=== PATIENT | female | born 1980 | race Hispanic/Latino ===

== ENCOUNTER 2024-05-26 16:51 | Inpatient (IN) | payer SELFPAY ==
[~2024-05-26] VITALS: Ht 162.6 cm; Wt 89.9 kg
--- NOTE | 2024-05-26 16:55 | NUR ---
SEPSIS ALERT ACTIVATED
[2024-05-26 17:22] LABS: BASOPHILS # (AUTO) 0.05 K/uL (0.00-0.20); BASOPHILS % (AUTO) 0.3 % (0.0-5.0); EOSINOPHILS # (AUTO) 0.08 K/uL (0.00-0.70); EOSINOPHILS % (AUTO) 0.5 % (0.0-8.0); HEMATOCRIT 42.1 % (36-48); IMMATURE GRANULOCYTE ABSOLUTE 0.09 K/uL (0-1); LYMPHOCYTES # (AUTO) 1.6 K/uL (1.0-4.8); LYMPHOCYTES % (AUTO) 9.4 % (21.0-51.0); MEAN CORPUSCULAR HEMOGLOBIN 30.7 pg (27.0-33.0); MEAN CORPUSCULAR HGB CONC 33.7 g/dL (32.0-36.0); MEAN CORPUSCULAR VOLUME 90.9 fL (79-99); MONOCYTES # (AUTO) 1.8 K/uL (0.1-1.0); MONOCYTES % (AUTO) 10.7 % (3.0-13.0); NEUTROPHILS # (AUTO) 13.2 K/uL (1.8-7.7); NEUTROPHILS % (AUTO) 78.6 % (40.0-77.0); PLATELET COUNT (AUTO) 308 K/uL (130-400); RED BLOOD CELL COUNT(AUTO) 4.63 MIL/uL (4.00-5.50); WHITE BLOOD COUNT (AUTO) 16.8 K/uL (4.8-10.8)
[2024-05-26 17:33] LABS: CREATININE 0.9 mg/dL (0.5-1.0); POTASSIUM 3.5 mmol/L (3.5-5.1)
[2024-05-26 17:37] LABS: ALBUMIN 3.4 g/dL (3.5-5.0); BILIRUBIN,TOTAL 0.8 mg/dL (0.2-1.0); TOTAL PROTEIN, SERUM 8.4 g/dL (6.0-8.3)
--- NOTE | 2024-05-26 17:44 | ERN ---
General Chief Complaint: Abdominal Pain Stated Complaint: UPPER ABDOMINAL PAIN Time Seen by MD: 16:53 Source: patient History of Present Illness Initial Comments Patient is a 43-year-old female coming in to be evaluated for upper abdominal. Patient states that the pain began two days ago in his been waxing and waning. Along with the epigastric pain the pain is also present in the right upper quadrant area. Allergies: Coded Allergies: No Known Drug Allergies (Unverified Allergy, Unknown, 05/26/24) Past Medical History Past Medical History: No Pertinent History Past Surgical History: Other Surgical History Other: TUBAL Female( History) LMP: May 26, 2024 : 5 Para: 4 Aborts: 1 ROS Dictation CONSTITUTIONAL: No chills, no fever, no weakness, no diaphoresis, no malaise. HEAD/FACE: No signs of trauma. EENT: No eye pain, no blurred vision, no tearing, no double vision, no ear pain, no ear discharge, no nose pain, no nasal congestion, no throat pain, no throat swelling, no mouth pain. RESPIRATORY: No cough, no orthopnea, no SOB, no stridor, no wheezing. CARDIOVASCULAR: No chest pain, no edema, no palpitations, no syncope. GASTROINTESTINAL/ABDOMINAL: abdominal pain, no constipation, no diarrhea, no nausea, no vomiting. GENITOURINARY: No abnormal discharge, no dysuria, no frequent urination, no hematuria. No complaints of pain in the genitals. MUSCULOSKELETAL: No back pain, no gout, no joint pain, no joint swelling, no muscle pain, no muscle stiffness, no neck pain. INTEGUMENTARY: No change in color, no change in hair/nails, no dryness, no lesion, no lumps, no rash. NEUROLOGICAL/PSYCH: No anxiety, not depressed, no emotional problem, no headache, no numbness, no pre-existing deficit, no history of seizures, no tremors, no weakness. HEMATOLOGIC/LYMPHATIC: Not anemic, no history of blood clots, no apparent bleeding, no bruising, glands not swollen. All Systems Negative, Except as Noted. Physical Exam Physical Exam Dictation VITAL SIGNS: Reviewed. GENERAL APPEARANCE: Alert, oriented x3, no acute distress, obese. HEAD AND FACE: Non-traumatic. EYES: PERRL, pink conjunctivas, eyelid no trauma, anterior chamber clear. EARS: Pinnas intact and no signs of trauma or erythema. Ear canals clear and no discharge. TMs no erythema. NOSE: No discharge, no bleeding. OROPHARYNX: Mouth normal, teeth no caries, tongue pink. Pharynx clear, no erythema. Tonsils no exudates, no abscesses noted. Mucous membrane moist. NECK: Supple, non-tender, no thyromegaly, no masses, no JVD, no bruits. BREAST: Deferred. CHEST: No tenderness, no crepitus, no paradoxical movement, no retractions. LUNGS: Clear, well-ventilated, symmetric, no rales, no wheezing, no rhonchi, no stridor, good breath sounds bilaterally. HEART: Regular rate, regular rhythm, no murmur, no gallops. VASCULAR: No peripheral edema. ABDOMEN: Soft, positive bowel sounds, nondistended, no guarding, right upper quadrant tenderness on palpation, epigastric tender, no rebound, no masses no hepatomegaly, no splenomegaly, no Green's sign, no hernias. RECTAL: Deferred. GENITAL: Deferred. NEUROLOGICAL: Normal speech, gross motor function intact, gross sensory function intact. MUSCULOSKELETAL: Neck nontender, full range of motion, back nontender, full ra nge of motion. EXTREMITIES: Nontender, full range of motion. SKIN: Color pink, dry, no turgor, no rash, no lacerations, no abrasions, no contusions. LYMPHATICS: Deferred. Results Laboratory and Microbiology Lab and Micro Result Laboratory Tests Test 05/26/24 17:11 05/26/24 18:36 White Blood Count 16.8 K/uL (4.8-10.8) H Red Blood Count 4.63 MIL/uL (4.00-5.50) Hemoglobin 14.2 g/dL (12.0-16.0) Hematocrit 42.1 % (36-48) Mean Corpuscular Volume 90.9 fL (79-99) Mean Corpuscular Hemoglobin 30.7 pg (27.0-33.0) Mean Corpuscular Hemoglobin Concent 33.7 g/dL (32.0-36.0) Red Cell Distribution Width 13.0 % (11.0-15.5) Platelet Count 308 K/uL (130-400) Mean Platelet Volume 9.7 fL (7.5-10.5) Immature Granulocyte % (Auto) 0.5 % (0-1) Neutrophils (%) (Auto) 78.6 % (40.0-77.0) H Lymphocytes (%) (Auto) 9.4 % (21.0-51.0) L Monocytes (%) (Auto) 10.7 % (3.0-13.0) Eosinophils (%) (Auto) 0.5 % (0.0-8.0) Basophils (%) (Auto) 0.3 % (0.0-5.0) Neutrophils # (Auto) 13.2 K/uL (1.8-7.7) H Lymphocytes # (Auto) 1.6 K/uL (1.0-4.8) Monocytes # (Auto) 1.8 K/uL (0.1-1.0) H Eosinophils # (Auto) 0.08 K/uL (0.00-0.70) Basophils # (Auto) 0.05 K/uL (0.00-0.20) Absolute Immature Granulocyte (auto 0.09 K/uL (0-1) Nucleated Red Blood Cells 0.0 % (0.0-0.19) White Cell Morphology Comment See comments Sodium Level 135 mmol/L (136-145) L Potassium Level 3.5 mmol/L (3.5-5.1) Chloride Level 97 mmol/L (101-111) L Carbon Dioxide Level 29 mmol/L (21-32) Blood Urea Nitrogen 7 mg/dL (7-18) Creatinine 0.9 mg/dL (0.5-1.0) Glomerular Filtration Rate Calc 82 mL/min (>90) Random Glucose 104 mg/dL (70-105) Total Calcium 8.7 mg/dL (8.5-10.1) Total Bilirubin 0.8 mg/dL (0.2-1.0) Aspartate Amino Transf (AST/SGOT) 16 U/L (10-37) Alanine Aminotransferase (ALT/SGPT) 16 U/L (12-78) Alkaline Phosphatase 98 U/L (50-136) Total Creatine Kinase 90 U/L (21-232) Troponin I High Sensitivity < 4 ng/L (4-50) L Total Protein 8.4 g/dL (6.0-8.3) H Albumin 3.4 g/dL (3.5-5.0) L Lipase 27 U/L (16-77) Urine Color LIGHT-YELLOW (YELLOW) Urine Appearance CLEAR (CLEAR) Urine pH 7.5 (5.0-8.0) Urine Specific [place] 1.005 (1.001-1.031) Urine Protein NEGATIVE mg/dL (NEGATIVE) Urine Glucose (UA) NEGATIVE mg/dL (NEGATIVE) Urine Ketones 10 mg/dL (NEGATIVE) H Urine Occult Blood +- (TRACE) (NEGATIVE) H Urine Nitrate NEGATIVE (NEGATIVE) Urine Bilirubin NEGATIVE mg/dL (NEGATIVE) Urine Urobilinogen 0.2 mg/dL (0.2-1.0) Urine Leukocyte Esterase NEGATIVE Ke[place]/uL Urine RBC 2-5 /HPF (0-1) H Urine WBC 0-1 /HPF (0-1) Urine Squamous Epithelial Cells RARE /HPF (0-2) Urine Bacteria RARE /HPF (None Seen) Urine HCG, Qualitative NEGATIVE (NEGATIVE) Labs Reviewed?: Yes EKG/XRAY/US/CT/MRI EKG Comment 05/26/2024 time 5:34 p.m. Ventricular rate [address] wave elevation or depression OH 148 MDM Workup for the patient included a right upper quadrant ultrasound which was negative. However a CT scan of her abdomen and pelvis showed a thickened gallbladder wall and then also to intra-abdominal masses. The patient had a fever spike to 102 and her CBC showed a white count elevated. I gave her some Tylenol and started an antibiotic Rocephin. I have called the hospitalist to admitted her to their service. ED Course Orders Procedure Category Date Status Time Cbc With Differential LAB 05/26/24 Complete 17:16 Comprehensive LAB 05/26/24 Complete Metabolic Panel 17:16 Troponin I High LAB 05/26/24 Complete Sensitivity 17:16 ,Urine Test LAB 05/26/24 Complete 17:16 Urinalysis Profile LAB 05/26/24 Complete 17:16 Us Abdominal Ruq\Ltd US 05/26/24 Resulted 17:16 12 Lead Ekg Tracing- EKG 05/26/24 Logged Technical 17:16 Lactated Ringers PHA 05/26/24 Complete 1000ml (Lactated 17:30 Creatine Kinase, Total LAB 05/26/24 Complete 17:16 Lipase LAB 05/26/24 Complete 17:16 Ct Abdomen/Pelvis W/O CT 3/27/25 Resulted Contrast 18:35 Acetaminophen 325 Tab PHA 05/26/24 Complete (Tylenol 325mg Tab 21:30 Ceftriaxone 2gm Vial PHA 05/26/24 Complete (Rocephin 2gm Inj) 21:30 Fentanyl Citrate Pf PHA 05/26/24 Complete 0.05 Mg/Ml (Fentanyl 21:30 Current Medications Medications (Trade) Dose Ordered Sig/Maricarmen Route PRN Reason Start Time Stop Time Status Last Admin Dose Admin Acetaminophen (TYLenol 325MG TAB) 650 mg ONCE ONCE PO 05/26/24 21:30 05/26/24 21:31 DC Ceftriaxone Sodium (Rocephin 2gm Inj) 2 gm ONCE ONCE IVPB 05/26/24 21:30 05/26/24 21:31 DC Fentanyl Citrate (FENTanyl CITRate PF 50 MCG/ 1 ML 2ML VIAL) 100 mcg ONCE ONCE IVP 05/26/24 21:30 05/26/24 21:31 DC Lactated Ringer's 1,000 ml @ 0 mls/hr ONCE ONCE IV 05/26/24 17:30 05/26/24 17:48 DC Vital Signs Date Time Temp Pulse Resp B/P (MAP) Pulse Ox O2 Delivery O2 Flow Rate FiO2 05/26/24 21:13 102.0 106 20 126/83 100 Room Air* 0 05/26/24 18:30 99.3 86 18 121/94 99 Room Air* 0 05/26/24 17:00 99.1 106 20 126/88 97 Room Air* 0 05/26/24 16:52 100.9 111 20 136/86 99 Room Air 0 DX & DISP Disposition: Inpatient Departure Impression: Primary Impression: Abdominal mass Condition: Stable Referrals: SELF,REFERRAL (PCP) MC HAYES MD May 26, 2024 17:44 JOSE DOMINGUEZ MD May 26, 2024 22:00
--- NOTE | 2024-05-26 18:28 | HMCIMG ---
ULTRASOUND ABDOMEN LIMITED INDICATION: Right upper abdominal pain COMPARISON: None FINDINGS: The liver is normal in size and echogenicity; no focal lesion demonstrated. Main portal vein is patent, and normal direction of vascular flow demonstrated. The common bile duct diameter measures 5.0 mm. Multiple echogenic shadowing stones within the gallbladder lumen, and gallbladder is filled with sludge, without associated pericholecystic fluid. No sonographic Green's sign elicited by the ultrasound carton lettering machine operator. Wall thickness measures 6.0 mm. Visible portions of the pancreas appear normal. Tail is obscured by overlying bowel gas. The right kidney measures 12.0 x 4.6 x 3.7 cm,and is normal in echogenicity, without evidence for hydronephrosis.No shadowing stones demonstrated. 1.4 cm simple cyst at the upper pole of the right kidney. No free fluid demonstrated. IMPRESSION: Cholelithiasis without cholecystitis.
[2024-05-26] MEDS: LACTATED RINGERS 1000ML 1,000 ML IV ONE (18:33)
--- NOTE | 2024-05-26 18:33 | NUR ---
ADMINISTERED LR BOLUS @ 1700 AFTER SEPSIS ALERT PATIENT RESTING IN BED, CALL LIGHT IN REACH
[2024-05-26 18:55] LABS: APPEARANCE,URINE CLEAR (CLEAR); BILIRUBIN,URINE NEGATIVE (NEGATIVE); COLOR,URINE LIGHT-YELLOW (YELLOW); GLUCOSE, URINE (UA) NEGATIVE (NEGATIVE); KETONES,URINE 10 mg/dL (NEGATIVE); LEUKOCYTE ESTERASE ,URINE NEGATIVE Leu/uL (NEGATIVE); NITRATE,URINE NEGATIVE (NEGATIVE); PH,URINE 7.5 (5.0-8.0); PROTEIN,URINE NEGATIVE (NEGATIVE); UROBILINOGEN,URINE 0.2 mg/dL (0.2-1.0)
[2024-05-26 18:56] LABS: ADD UA MICROSCOPIC YES
[2024-05-26 18:57] LABS: HCG,QUALITATIVE URINE NEGATIVE (NEGATIVE)
[2024-05-26 18:59] LABS: BACTERIA,URINE RARE /HPF (None Seen); SQUAMOUS EPITHELIAL CELL,UR RARE /HPF (0-2); WBC,URINE 0-1 /HPF (0-1)
--- NOTE | 2024-05-26 19:34 | HMCIMG ---
CT ABDOMEN WITHOUT CONTRAST. CT PELVIS WITHOUT CONTRAST. INDICATION: Abdominal pain; No relevant information related to this study was provided in patient's history by the ordering service. TECHNIQUE: Routine transaxial imaging using 5 mm slice thickness through the abdomen and pelvis without the administration of IV contrast. Thin slice reconstructions are also provided. Coronal and sagittal reformatted images acquired for interpretation. CT was performed with one or more of the following dose reduction techniques: Automated exposure control, adjustment of the mA and/or kV according to patient size, or use of iterative reconstruction technique. COMPARISON: None FINDINGS: ON NONCONTRAST IMAGING: ABDOMEN: Heart size is normal. Visible lung bases are clear. No abnormal renal calcifications, hydronephrosis, perinephric inflammation, or proximal hydroureter detected. The liver is normal in size and smooth in contour without biliary duct dilation. The spleen is normal in size and attenuation. Gallbladder is distended and gallbladder wall edema identified including intraluminal calculi and sludge. Nominal pericholecystic inflammatory fat stranding. The pancreas appears normal without pancreatic duct dilation. The adrenal glands appear normal. No significant abdominal, retrocrural or retroperitoneal adenopathy noted. No evidence for intra-abdominal free air or organized fluid collection. No aortic aneurysmal dilation identified. PELVIS: No abnormal calcifications within the urinary bladder or distal ureters. No evidence for free air or organized pelvic fluid collection. No significant pelvic adenopathy detected. Visualized small and large bowel loops appear unremarkable. Terminal ileum appears unremarkable. The appendix is not well-visualized. 10.6 cm mass containing fat, soft tissue, and calcific components within the right lower abdomen and additional 12.5 cm mass aggregate within the left adnexa with similar components. No surrounding inflammatory changes or free fluid. 5.0 cm subserosal fibroid arising superiorly off the posterior uterine fundus. Visible osseous structures are intact. IMPRESSION: No relevant information related to this study was provided in patient's history by the ordering service. 1. Findings suggesting acute calculus cholecystitis. 2. Bilateral adnexal teratomas without lymphadenopathy at this juncture. TALLOW MAKER consult is recommended. 3. Fibroid uterus.
[2024-05-26] MEDS: FENTanyl CITRate PF 50 MCG/1 ML 2ML VIAL IVP ONE (22:11)
[2024-05-26] MEDS: acetaMINOPHEN 325 MG TAB PO ONE (22:12)
[2024-05-26] MEDS: CEFTRIAXONE 2GM VIAL IVPB ONE (22:12)
[2024-05-27] VITALS (9 sets, daily range): BP systolic 113–154; BP diastolic 75–89; PULSE 64–86; RESP 18–20; TEMP 97.6–99.2; O2SAT 99–100
[2024-05-27] MEDS: 0.9%NACL 1000ML 1,000 ML IV SCH (00:06)
[2024-05-27] MEDS: ZOSYN 3.375GM +NS 50ML IV SCH (00:06)
[2024-05-27] MEDS: morPHINE 2 MG SYG IVP PRN (00:17)
--- NOTE | 2024-05-27 01:30 | NUR ---
REPORT GIVEN TO CELIA GARCIA
[2024-05-27] MEDS: hydroMORPHone 0.5 MG SYG (0.5MG/0.5ML) IVP ONE (02:13)
[2024-05-27 05:07] LABS: BASOPHILS # (AUTO) 0.04 K/uL (0.00-0.20); BASOPHILS % (AUTO) 0.2 % (0.0-5.0); EOSINOPHILS # (AUTO) 0.16 K/uL (0.00-0.70); HEMATOCRIT 37.9 % (36-48); IMMATURE GRANULOCYTE ABSOLUTE 0.09 K/uL (0-1); LYMPHOCYTES # (AUTO) 1.5 K/uL (1.0-4.8); LYMPHOCYTES % (AUTO) 9.2 % (21.0-51.0); MEAN CORPUSCULAR HEMOGLOBIN 30.8 pg (27.0-33.0); MEAN CORPUSCULAR HGB CONC 33.8 g/dL (32.0-36.0); MEAN CORPUSCULAR VOLUME 91.1 fL (79-99); MONOCYTES # (AUTO) 1.9 K/uL (0.1-1.0); MONOCYTES % (AUTO) 11.6 % (3.0-13.0); NEUTROPHILS % (AUTO) 77.5 % (40.0-77.0); PLATELET COUNT (AUTO) 271 K/uL (130-400); RED BLOOD CELL COUNT(AUTO) 4.16 MIL/uL (4.00-5.50); WHITE BLOOD COUNT (AUTO) 16.7 K/uL (4.8-10.8)
[2024-05-27 05:25] LABS: ALBUMIN 2.8 g/dL (3.5-5.0); BILIRUBIN,TOTAL 0.6 mg/dL (0.2-1.0); CREATININE 0.7 mg/dL (0.5-1.0); MAGNESIUM 2.1 mg/dL (1.80-2.40); POTASSIUM 3.6 mmol/L (3.5-5.1); TOTAL PROTEIN, SERUM 7.1 g/dL (6.0-8.3)
--- NOTE | 2024-05-27 06:05 | EKG ---
[facility] Test Date: 2024-05-26 Test Time: 17:34:57 Pat Name: DANTE TOBIAS Department: [facility] Room: 329 1 Gender: F Umbrella Tipper Machine: [id number] : 1980 Requested By: MC HAYES Order Number: [id number] Reading MD: Sang Valdez Measurements Intervals [place] Rate: 104 P: 3 DC: 148 QRS: 63 QRSD: 98 T: 2 QT: 377 QTc: 497 Interpretive Statements Sinus tachycardia Ventricular premature complex Aberrant conduction of SV complex(es) Low voltage, precordial leads No previous ECG available for comparison Electronically Signed On 05-27-2024 14:50:45 CDT by Sang Valdez Please click the below link to view image of tracing.
[2024-05-27] MEDS: ondanSETRON 4MG INJ IVP PRN (08:16)
[2024-05-27] MEDS ORDERED: hydroMORPHone 2 MG VIAL (2MG/ML) IVP PRN (12:30)
--- NOTE | 2024-05-27 12:36 | HP ---
[facility] HISTORY AND PHYSICAL Date of Service: May 27, 2024 Time of Service: 12:09 HISTORY OF PRESENT ILLNESS: [Is a 43-year-old female who denies any past medical history presented to the emergency department with four days of abdominal pain associated with nausea and vomiting. She also reported subjective fever. She took a penicillin and omeprazole at home without no resolution. She decided to come to the emergency department for further evaluation. In the ED, abdominal ultrasound done which showed cholelithiasis without cholecystitis. CT abdomen and pelvis showed findings suggestive calculous cholecystitis, bilateral adnexal teratomas without lymphadenopathy at this juncture, fibroid uterus. Roof Tiler consult is recommended. Patient was evaluated in the room, she was reporting 10/10 abdominal pain. We will adjust pain medication. We will be consulting general surgeon. ] REVIEW OF SYSTEMS CONSTITUTIONAL: Denies fevers, chills, or night sweats. No unintentional weight loss reported. NEUROLOGICAL: Denies headache, amaurosis fugax, motor weakness, sensory deficit, vertigo/spinning sensation, gait abnormalities, or tremors. ENT: No hearing loss, otalgia, otorrhea, rhinitis, rhinorrhea, hoarseness, or sore throat. CARDIOVASCULAR: Denies any exertional angina, dyspnea on exertion, orthopnea, paroxysmal nocturnal dyspnea, palpitations, life-threatening arrhythmias, claudication. PULMONARY: Denies any shortness of breath, cough, phlegm/sputum, hemoptysis, pleuritic chest pain. SLEEP: Denies morning headaches, daytime somnolence or napping. Denies difficulty falling asleep, staying asleep, waking from sleep. Denies knowledge of snoring. GASTROINTESTINAL: Denies any type of dysphagia to either liquids or solids. Denies nausea, vomiting, pyrosis, early satiety, abdominal pain, diarrhea, constipation, or changes in stool consistency or caliber. Denies coffee-ground emesis, hematemesis, hematochezia, or melanotic stools. GENITOURINARY: Denies frequency, urgency, nocturia, hematuria or incontinence (Storage/Irritative symptoms.) Low urinary stream, straining to void, urinary intermittency or hesitancy, splitting of the voiding stream, terminal dribbling. ENDOCRINOLOGIC: Denies polyuria, polydipsia, polyphagia or heat/cold intolerances. HEMATOLOGIC: Denies thrombophilia/previous clots, or coagulopathy/bleeding disorders. ONCOLOGIC: Denies personal history of malignancy. DERMATOLOGIC: Denies rashes or pruritus. PSYCHIATRIC: Denies any suicidal or homicidal ideation. Denies hallucinations. PAST MEDICAL HISTORY: [ Denies any past medical history ] PAST SURGICAL HISTORY: [Tubal ligation ] PAST SOCIAL HISTORY: [Patient vapes, drinks occasionally, ] FAMILY HISTORY: [Noncontributory ] Coded Allergies: No Known Drug Allergies (Unverified Allergy, Unknown, 05/26/24) PHYSICAL EXAM GENERAL APPEARANCE: The patient is awake, alert, and oriented, in no acute cardiopulmonary distress. NEUROLOGICAL: Cranial nerves II-XII grossly intact. Motor is 5/5 in bilateral upper and lower extremities proximal to distal. No sensory deficits. HEENT: Face is symmetric. Pupils are equal and reactive. Extraocular movements are intact. NECK: Supple. No JVD. No thyromegaly. No submental, submandibular, pre- /postauricular, occipital or supraclavicular lymphadenopathy. CHEST: Normal chest expansion. No Telemetry. LUNGS: Absence of any rales, rhonchi or any wheezing. CARDIOVASCULAR: Regular. S1 and S2 normal. No appreciable rubs, murmurs or gallops. ABDOMEN: Soft, nontender, and nondistended. There is no rebound, voluntary guarding, or rigidity. : Deferred. No Roach. EXTREMITIES: Non-edematous and not cyanotic. No clubbing. Good capillary refill. SKIN: No skin breakdown. Vital Sign (Last 24 Hours) 05/27/24 05/27/24 02:00 07:41 Temp 98.1 Pulse 71 Resp 20 B/P (MAP) 132/88 Pulse Ox 100 O2 Delivery Room Air O2 Flow Rate 0 FiO2 21 LABS: Laboratory: Test 05/27/24 05:01 05/26/24 18:36 05/26/24 17:11 Range/Units White Blood Count 16.7 H 4.8-10.8 K/uL Red Blood Count 4.16 4.00-5.50 MIL/uL Hemoglobin 12.8 12.0-16.0 g/dL Hematocrit 37.9 36-48 % Mean Corpuscular Volume 91.1 79-99 fL Mean Corpuscular Hemoglobin 30.8 27.0-33.0 pg Mean Corpuscular Hemoglobin Concent 33.8 32.0-36.0 g/dL Red Cell Distribution Width 13.0 11.0-15.5 % Platelet Count 271 130-400 K/uL Mean Platelet Volume 9.9 7.5-10.5 fL Immature Granulocyte % (Auto) 0.5 0-1 % Neutrophils (%) (Auto) 77.5 H 40.0-77.0 % Lymphocytes (%) (Auto) 9.2 L 21.0-51.0 % Monocytes (%) (Auto) 11.6 3.0-13.0 % Eosinophils (%) (Auto) 1.0 0.0-8.0 % Basophils (%) (Auto) 0.2 0.0-5.0 % Neutrophils # (Auto) 13.0 H 1.8-7.7 K/uL Lymphocytes # (Auto) 1.5 1.0-4.8 K/uL Monocytes # (Auto) 1.9 H 0.1-1.0 K/uL Eosinophils # (Auto) 0.16 0.00-0.70 K/uL Basophils # (Auto) 0.04 0.00-0.20 K/uL Absolute Immature Granulocyte (auto 0.09 0-1 K/uL Nucleated Red Blood Cells 0.0 0.0-0.19 % Sodium Level 137 136-145 mmol/L Potassium Level 3.6 3.5-5.1 mmol/L Chloride Level 101 101-111 mmol/L Carbon Dioxide Level 26 21-32 mmol/L Blood Urea Nitrogen 6 L 7-18 mg/dL Creatinine 0.7 0.5-1.0 mg/dL Glomerular Filtration Rate Calc 111 >90 mL/min Random Glucose 101 70-105 mg/dL Lactic Acid Level 0.9 0.8-2.5 mmol/L Total Calcium 8.0 L 8.5-10.1 mg/dL Magnesium Level 2.10 1.80-2.40 mg/dL Total Bilirubin 0.6 # 0.2-1.0 mg/dL Aspartate Amino Transf (AST/SGOT) 14 10-37 U/L Alanine Aminotransferase (ALT/SGPT) 12 # 12-78 U/L Alkaline Phosphatase 76 50-136 U/L Total Protein 7.1 6.0-8.3 g/dL Albumin 2.8 L 3.5-5.0 g/dL Urine Color LIGHT-YELLOW YELLOW Urine Appearance CLEAR CLEAR Urine pH 7.5 5.0-8.0 Urine Specific [place] 1.005 1.001-1.031 Urine Protein NEGATIVE NEGATIVE mg/dL Urine Glucose (UA) NEGATIVE NEGATIVE mg/dL Urine Ketones 10 H NEGATIVE mg/dL Urine Occult Blood +- (TRACE) H NEGATIVE Urine Nitrate NEGATIVE NEGATIVE Urine Bilirubin NEGATIVE NEGATIVE mg/dL Urine Urobilinogen 0.2 0.2-1.0 mg/dL Urine Leukocyte Esterase NEGATIVE NEGATIVE Keiry/uL Urine RBC 2-5 H 0-1 /HPF Urine WBC 0-1 0-1 /HPF Urine Squamous Epithelial Cells RARE 0-2 /HPF Urine Bacteria RARE None Seen /HPF Urine HCG, Qualitative NEGATIVE NEGATIVE White Cell Morphology Comment See comments Total Creatine Kinase 90 21-232 U/L Troponin I High Sensitivity < 4 L 4-50 ng/L Lipase 27 16-77 U/L Current Medications Medications (Trade) Dose Ordered Sig/Maricarmen Route PRN Reason Start Time Stop Time Status Last Admin Dose Admin Acetaminophen (TYLenol 325MG TAB) 650 mg Q4H PRN PO TEMPERATURE GREATER THAN 101.5 05/26/24 22:30 06/25/24 22:29 Morphine Sulfate (morPHINE 2MG SYG) 2 mg Q4H PRN IVP SEVERE PAIN (7-10) 05/26/24 22:30 06/02/24 22:29 05/27/24 11:10 2 MG Ondansetron HCl (zoFRAN 4MG INJ) 4 mg Q6H PRN IVP NAUSEA/VOMITING 05/26/24 22:30 06/25/24 22:29 05/27/24 08:16 4 MG Piperacillin Sod/ Tazobactam Sod (Zosyn 3.375gm+NS 50ml) 3.375 gm Q8H IV 05/26/24 22:30 06/05/24 22:29 05/27/24 06:21 3.375 GM Sodium Chloride 1,000 ml @ 100 mls/hr Q10H IV 05/26/24 22:30 06/25/24 22:29 05/27/24 08:34 100 MLS/HR DIAGNOSTICS / RADIOLOGY: [ ] ASSESSMENT: [Sepsis, POA Acute calculous cholecystitis, POA Intractable abdominal pain, POA Hyponatremia, POA Leukocytosis, POA PLAN: [Admit medical surgical floor We will keep her NPO Continue with IV fluids Continue with IV antibiotics with Zosyn We will repeat labs in the morning Continue with pain management GI and DVT prophylaxis Patient is a full code Case discussed with Dr. Shine, above plan was formulated ADVANCED CARE PLANNING 1. Which of the following were discussed? Hospice Care - Yes / No Therapeutic options - Yes / No Advance Directives - Yes / No Other discussions - 2. Discussed with who? Patient 3. Voluntary nature of this service was explained to the patient? Yes / No 4. Amount of time spent - __21 mins 5. Reviewed by Physician? (if this service was performed by NPP) Yes / No ] ATTESTATION BY PHYSICIAN I have seen and examined the patient. I reviewed the documentation, medical decision making, and treatment plan as noted by the mid-level provider above. I agree with the findings and plan of care. BARBARA SHINE MD, JANICE B AGPCNP May 27, 2024 12:36
--- NOTE | 2024-05-27 15:15 | NUR ---
lIes with adult son and minor daughter, and is [place] [facility] [email or web address]. Pt is independent, drives, has no DME or services. HAS NO PRIMARY MD AND HAS NOT HAS ANY HSPT TUTOR VISIT IN ABOUT 17 YRS Does not go to clinics her, does not have a pharmacy- gets her medications in [place]. Community resource list given with special instruction regarding setting up with [facility] and /or [facility] for OB visits. Expect patient to have difficulty accessing resources need to fully diagnose and treat the findings in her. CT SCAN Facesheet and phone numbers confirmed. Addendum: 05/27/24 at 1746 by JENIFER NIEVES RN Amended: Links added.
[2024-05-27] MEDS: morPHINE 4 MG SYG IVP PRN (17:10)
--- NOTE | 2024-05-27 20:06 | NUR ---
PATIENT REPORTS SHE IS FEELING NAUSEA AND SENSATION THAT SHE WANTS TO BURP. SHE HAS RECEIVED ZOFRAN AT 1709. CONTACTED ANSWERING SERVICE FOR HOSPITALIST TO NOTIFY. SPOKE TO WIL[facility]HAL [facility] UPON CALL BACK. RECEIVED ORDERS FOR PHENERGAN TO ALTERNATE WITH ZOFRAN. INFORMED PATIENT.
[2024-05-27] MEDS: PROMETHAZINE HCL 25 MG/ML 1ML AMPULE IM PRN (20:41)
--- NOTE | 2024-05-27 21:30 | NUR ---
PATIENT REPORTS NAUSEA WAS RELIEVED AFTER MEDICATED WITH PHENERGAN.
[2024-05-28] VITALS (9 sets, daily range): BP systolic 128–139; BP diastolic 80–86; PULSE 97–109; RESP 17–21; TEMP 97.9–101.9; O2SAT 99
[2024-05-28 04:22] LABS: HEMATOCRIT 39.5 % (36-48); MEAN CORPUSCULAR HEMOGLOBIN 30.5 pg (27.0-33.0); MEAN CORPUSCULAR HGB CONC 33.9 g/dL (32.0-36.0); PLATELET COUNT (AUTO) 300 K/uL (130-400); RED BLOOD CELL COUNT(AUTO) 4.39 MIL/uL (4.00-5.50); RED CELL DISTRIBUTION WIDTH 12.8 % (11.0-15.5)
[2024-05-28 04:27] LABS: WHITE BLOOD COUNT (AUTO) 31.5 K/uL (4.8-10.8)
[2024-05-28 04:32] LABS: CREATININE 0.6 mg/dL (0.5-1.0); POTASSIUM 3.9 mmol/L (3.5-5.1)
[2024-05-28] MEDS: 0.9%NACL 1000ML 1,000 ML IV SCH (05:00)
[2024-05-28 05:19] LABS: BAND NEUTROPHILS % (MANUAL) 6 % (0-2); LYMPHOCYTES % (MANUAL) 4 % (22-44); MAN.DIFF COMMENT-IMPRESSION MANUAL DIFFERENTIAL; MONOCYTES % (MANUAL) 11 % (2-9); SEGMENTED NEUTROPHILS % 79 % (40-70); TOTAL CELLS COUNTED 100
[2024-05-28 05:51] LABS: WBC MORPHOLOGY VACUOLATION 1+
[2024-05-28] MEDS ORDERED: 0.9%NACL 1000ML 1,000 ML IV SCH (07:00)
--- NOTE | 2024-05-28 10:02 | PN ---
[facility] PROGRESS NOTE Date of Service: May 28, 2024 Time of Service: 10:00 SUBJECTIVE: [This is a 43-year-old female who presented to the emergency department with abdominal pain CT abdomen and pelvis showed calculous cholecystitis. She is pending HIDA scan today. On evaluation, she complained of abdominal tenderness. We will be following up on HIDA scan results. Continue NPO. Continue with IV fluids. Continue with IV antibiotics. ] REVIEW OF SYSTEMS CONSTITUTIONAL: Denies fevers, chills, or night sweats. No unintentional weight loss reported. NEUROLOGICAL: Denies headache, amaurosis fugax, motor weakness, sensory deficit, vertigo/spinning sensation, gait abnormalities, or tremors. ENT: No hearing loss, otalgia, otorrhea, rhinitis, rhinorrhea, hoarseness, or sore throat. CARDIOVASCULAR: Denies any exertional angina, dyspnea on exertion, orthopnea, paroxysmal nocturnal dyspnea, palpitations, life-threatening arrhythmias, claudication. PULMONARY: Denies any shortness of breath, cough, phlegm/sputum, hemoptysis, pleuritic chest pain. SLEEP: Denies morning headaches, daytime somnolence or napping. Denies difficulty falling asleep, staying asleep, waking from sleep. Denies knowledge of snoring. GASTROINTESTINAL: Denies any type of dysphagia to either liquids or solids. Denies nausea, vomiting, pyrosis, early satiety, abdominal pain, diarrhea, constipation, or changes in stool consistency or caliber. Denies coffee-ground emesis, hematemesis, hematochezia, or melanotic stools. GENITOURINARY: Denies frequency, urgency, nocturia, hematuria or incontinence (Storage/Irritative symptoms.) Low urinary stream, straining to void, urinary intermittency or hesitancy, splitting of the voiding stream, terminal dribbling. ENDOCRINOLOGIC: Denies polyuria, polydipsia, polyphagia or heat/cold intolerances. HEMATOLOGIC: Denies thrombophilia/previous clots, or coagulopathy/bleeding disorders. ONCOLOGIC: Denies personal history of malignancy. DERMATOLOGIC: Denies rashes or pruritus. PSYCHIATRIC: Denies any suicidal or homicidal ideation. Denies hallucinations. PHYSICAL EXAM GENERAL APPEARANCE: The patient is awake, alert, and oriented, in no acute cardiopulmonary distress. NEUROLOGICAL: Cranial nerves II-XII grossly intact. Motor is 5/5 in bilateral upper and lower extremities proximal to distal. No sensory deficits. HEENT: Face is symmetric. Pupils are equal and reactive. Extraocular movements are intact. NECK: Supple. No JVD. No thyromegaly. No submental, submandibular, pre- /postauricular, occipital or supraclavicular lymphadenopathy. CHEST: Normal chest expansion. No Telemetry. LUNGS: Absence of any rales, rhonchi or any wheezing. CARDIOVASCULAR: Regular. S1 and S2 normal. No appreciable rubs, murmurs or gallops. ABDOMEN: Soft, nontender, and nondistended. There is no rebound, voluntary guarding, or rigidity. : Deferred. No Roach. EXTREMITIES: Non-edematous and not cyanotic. No clubbing. Good capillary refill. SKIN: No skin breakdown. Vital Signs (last 8hr) Date Time Temp Pulse Resp B/P (MAP) Pulse Ox O2 Delivery O2 Flow Rate FiO2 05/28/24 08:30 99 Room Air* 0 21 05/28/24 08:00 99.1 109 18 128/80 99 Room Air 05/28/24 04:14 99.7 100 17 133/86 98 Room Air LABS: Laboratory: Test 05/28/24 05:58 05/28/24 03:58 05/27/24 05:01 05/26/24 18:36 Range/Units Lactic Acid Level 1.1 0.8-2.5 mmol/L White Blood Count 31.5 #*H 4.8-10.8 K/uL Red Blood Count 4.39 4.00-5.50 MIL/uL Hemoglobin 13.4 12.0-16.0 g/dL Hematocrit 39.5 36-48 % Mean Corpuscular Volume 90.0 79-99 fL Mean Corpuscular Hemoglobin 30.5 27.0-33.0 pg Mean Corpuscular Hemoglobin Concent 33.9 32.0-36.0 g/dL Red Cell Distribution Width 12.8 11.0-15.5 % Platelet Count 300 130-400 K/uL Mean Platelet Volume 9.9 7.5-10.5 fL Segmented Neutrophils % 79 H 40-70 % Band Neutrophils % 6 H 0-2 % Lymphocytes % (Manual) 4 L 22-44 % Monocytes % (Manual) 11 H 2-9 % Nucleated Red Blood Cells 0.0 0.0-0.19 % Differential Comment MANUAL DIFFERENTIAL White Cell Morphology Comment VACUOLATION 1+ Platelet Morphology Comment See comments Red Blood Cell Morphology ANISO 1+ Sodium Level 130 L 136-145 mmol/L Potassium Level 3.9 3.5-5.1 mmol/L Chloride Level 98 L 101-111 mmol/L Carbon Dioxide Level 21 21-32 mmol/L Blood Urea Nitrogen 6 L 7-18 mg/dL Creatinine 0.6 0.5-1.0 mg/dL Glomerular Filtration Rate Calc 115 >90 mL/min Random Glucose 136 H 70-105 mg/dL Total Calcium 8.0 L 8.5-10.1 mg/dL Procalcitonin 0.70 H 0.05-0.5 ng/mL Immature Granulocyte % (Auto) 0.5 0-1 % Neutrophils (%) (Auto) 77.5 H 40.0-77.0 % Lymphocytes (%) (Auto) 9.2 L 21.0-51.0 % Monocytes (%) (Auto) 11.6 3.0-13.0 % Eosinophils (%) (Auto) 1.0 0.0-8.0 % Basophils (%) (Auto) 0.2 0.0-5.0 % Neutrophils # (Auto) 13.0 H 1.8-7.7 K/uL Lymphocytes # (Auto) 1.5 1.0-4.8 K/uL Monocytes # (Auto) 1.9 H 0.1-1.0 K/uL Eosinophils # (Auto) 0.16 0.00-0.70 K/uL Basophils # (Auto) 0.04 0.00-0.20 K/uL Absolute Immature Granulocyte (auto 0.09 0-1 K/uL Magnesium Level 2.10 1.80-2.40 mg/dL Total Bilirubin 0.6 # 0.2-1.0 mg/dL Aspartate Amino Transf (AST/SGOT) 14 10-37 U/L Alanine Aminotransferase (ALT/SGPT) 12 # 12-78 U/L Alkaline Phosphatase 76 50-136 U/L Total Protein 7.1 6.0-8.3 g/dL Albumin 2.8 L 3.5-5.0 g/dL Urine Color LIGHT-YELLOW YELLOW Urine Appearance CLEAR CLEAR Urine pH 7.5 5.0-8.0 Urine Specific [place] 1.005 1.001-1.031 Urine Protein NEGATIVE NEGATIVE mg/dL Urine Glucose (UA) NEGATIVE NEGATIVE mg/dL Urine Ketones 10 H NEGATIVE mg/dL Urine Occult Blood +- (TRACE) H NEGATIVE Urine Nitrate NEGATIVE NEGATIVE Urine Bilirubin NEGATIVE NEGATIVE mg/dL Urine Urobilinogen 0.2 0.2-1.0 mg/dL Urine Leukocyte Esterase NEGATIVE NEGATIVE [place]/uL Urine RBC 2-5 H 0-1 /HPF Urine WBC 0-1 0-1 /HPF Urine Squamous Epithelial Cells RARE 0-2 /HPF Urine Bacteria RARE None Seen /HPF Urine HCG, Qualitative NEGATIVE NEGATIVE Test 05/26/24 17:11 Range/Units Total Creatine Kinase 90 21-232 U/L Troponin I High Sensitivity < 4 L 4-50 ng/L Lipase 27 16-77 U/L Current Medications Medications (Trade) Dose Ordered Sig/Maricarmen Route PRN Reason Start Time Stop Time Status Last Admin Dose Admin Acetaminophen (TYLenol 325MG TAB) 650 mg Q4H PRN PO TEMPERATURE GREATER THAN 101.5 05/26/24 22:30 06/25/24 22:29 Hydromorphone HCl (DiLAUDid 2MG INJ) 2 mg Q4H PRN IVP SEVERE PAIN (7-10) 05/27/24 12:30 05/27/24 12:19 DC Morphine Sulfate (morPHINE 2MG SYG) 2 mg Q4H PRN IVP SEVERE PAIN (7-10) 05/26/24 22:30 05/27/24 12:16 DC 05/27/24 11:10 2 MG Morphine Sulfate (morPHINE 4MG SYG) 4 mg Q2HPRN PRN IVP SEVERE PAIN (7-10) 05/27/24 12:30 06/03/24 12:29 05/27/24 23:17 4 MG Ondansetron HCl (zoFRAN 4MG INJ) 4 mg Q6H PRN IVP NAUSEA/VOMITING 05/26/24 22:30 06/25/24 22:29 05/27/24 17:09 4 MG Piperacillin Sod/ Tazobactam Sod (Zosyn 3.375gm+NS 50ml) 3.375 gm Q8H IV 05/26/24 22:30 06/05/24 22:29 05/28/24 04:59 3.375 GM Promethazine HCl (Phenergan) 25 mg Q6H PRN IM NAUSEA/VOMITING 05/27/24 20:30 06/26/24 20:29 05/27/24 20:41 25 MG Sodium Chloride 500 ml @ 250 mls/hr Q2H IV 05/28/24 05:00 05/28/24 06:59 DC 05/28/24 05:00 250 MLS/HR Sodium Chloride 1,000 ml @ 0 mls/hr Q0M IV 05/28/24 07:00 06/27/24 06:59 Sodium Chloride 1,000 ml @ 100 mls/hr Q10H IV 05/26/24 22:30 06/25/24 22:29 05/27/24 18:31 100 MLS/HR DIAGNOSTICS / RADIOLOGY: [ ] ASSESSMENT: [Sepsis, POA Acute calculous cholecystitis, POA Intractable abdominal pain, POA Hyponatremia, POA Leukocytosis, POA PLAN: [Admit medical surgical floor We will keep her NPO Continue with IV fluids Continue with IV antibiotics with Zosyn HIDA scan scheduled for today We will repeat labs in the morning Continue with pain management GI and DVT prophylaxis Patient is a full code Case discussed with Dr. Shine, above plan was formulated ATTESTATION BY PHYSICIAN I have seen and examined the patient. I reviewed the documentation, medical decision making, and treatment plan as noted by the mid-level provider above. I agree with the findings and plan of care. BARBARA SHINE MD, JANICE B AGPCNP May 28, 2024 10:01
--- NOTE | 2024-05-28 11:27 | CONS ---
CONSULT NOTE: Consulting physician: Dr. Lerma Consulting service: General surgery Reason for consultation: Cholecystitis History of present illness: This is a 43-year-old female consulted to surgery after presenting to the hospit al with a three day history of abdominal discomfort associated with nausea and vomiting Patient reports concerns of fevers but due to concerns presented to the hospital for further evaluation. Initial imaging concerning for cholelithiasis without cholecystitis however patient continues to have abdominal discomfort. Patient was scheduled for HIDA scan which is currently pending at this time. Patient currently NPO. Overnight patient also with a jump in white count to 31. Hemoglobin stable. LFTs unremarkable. Vitals unremarkable Medical history: None reported Surgical history: Tubal ligation Review of systems: General: No Fever, No Chills, No Night Sweats, No Fatigue, No Malaise, No Appetite, No Other HEENT: No Head Aches, No Visual Changes, No Eye Pain, No Ear Pain, No Dysphasia, No Sinus Congestion, No Post Nasal Drip, No Sore Throat, No Other Pulmonary: No Dyspnea, No Cough, No Pleuritic Chest Pain, No Other Cardiovascular: No: Chest Pain, Palpitations, Orthopnea, Paroxysmal No Dyspnea, Edema, Lt Headedness, Other Gastrointestinal: No: Nausea, Vomiting, Diarrhea, Constipation, Melena, Hematochezia, Other Genitourinary: No Dysuria, No Frequency, No Incontinence, No Hematuria, No Retention, No Other Musculoskeletal: No: other, neck pain, shoulder pain, arm pain, back pain, hand pain, leg pain, foot pain Skin: No Urticaria, No Rash, No Other Neurological: No: Weakness, Numbness, Incoordination, Change in speech, Confusion, Seizures, Other Physical exam: General: Awake alert and oriented Heart: Regular rate and rhythm} Lungs: [Clear to auscultation no distress Abdomen: [Epigastric discomfort with the right upper quadrant discomfort Assessment: This is a 43-year-old female with suspected acute cholecystitis Plan: At this point in time we will await HIDA scan findings If consistent with cholecystitis patient to be taken to surgery for cholecystectomy Thursday with Dr. Galaviz Patient to continue with IV fluids and IV antibiotics After HIDA scan patient to be allowed clear liquid diet Surgical team to follow patient closely Nursing to report any further acute events SAMEER ZAMBRANO Jr. May 28, 2024 11:27
--- NOTE | 2024-05-28 20:13 | HMCIMG ---
HEPATOBILIARY SCAN INDICATION: Right upper abdominal pain COMPARISON: None RADIOPHARMACEUTICAL: Tc99m Choletec DOSE: 6.0 mCi given IV. TECHNIQUE: Abdominal functional images were obtained and submitted for interpretation. FINDINGS: Functional images obtained up to 120 minutes showed normal hepato-intestinal transit time, but no accumulation of activity within the gallbladder. IMPRESSION: Findings suggesting acute cholecystitis.
[2024-05-28] MEDS: acetaMINOPHEN 325 MG TAB PO PRN (21:03)
[2024-05-29] VITALS (8 sets, daily range): BP systolic 101–134; BP diastolic 65–77; PULSE 87–112; RESP 17–21; TEMP 98–100.2; O2SAT 97
[2024-05-29] MEDS: ketOROlac 15MG/ML VIAL (15MG/ML) IV PRN (03:19)
[2024-05-29 04:26] LABS: HEMATOCRIT 33.4 % (36-48); MEAN CORPUSCULAR HEMOGLOBIN 30.6 pg (27.0-33.0); MEAN CORPUSCULAR HGB CONC 34.7 g/dL (32.0-36.0); MEAN CORPUSCULAR VOLUME 88.1 fL (79-99); RED BLOOD CELL COUNT(AUTO) 3.79 MIL/uL (4.00-5.50); RED CELL DISTRIBUTION WIDTH 12.9 % (11.0-15.5); WHITE BLOOD COUNT (AUTO) 24.3 K/uL (4.8-10.8)
[2024-05-29 04:33] LABS: CREATININE 0.7 mg/dL (0.5-1.0); POTASSIUM 3.7 mmol/L (3.5-5.1)
--- NOTE | 2024-05-29 08:43 | PN ---
This is a 43-year-old female with concerns of acute cholecystitis Interval history: This 43-year-old female seen in her resting Patient underwent HIDA yesterday consistent cholecystitis White count trending down today 24 Abdominal pain improving Patient tolerating clear liquids Physical exam General: Awake alert and oriented Heart: Regular rate and rhythm} Lungs: Clear to auscultation no distress Abdomen: [Soft, nontender, nondistended Assessment : This is a 43-year-old female with acute cholecystitis Plan: Patient to be scheduled for robotic cholecystectomy to be performed tomorrow by Dr. Galaviz Patient to be allowed diet today and made NPO at midnight Consent to be obtained for surgical intervention Surgical team to be updated with any further acute events Vitals/Labs Vital Signs Date Time Temp Pulse Resp B/P (MAP) Pulse Ox O2 Delivery O2 Flow Rate FiO2 05/29/24 08:00 98.2 87 20 113/69 97 Room Air 05/28/24 19:26 0 21 Laboratory Tests 05/29/24 04:14 Medications Current Medications Lactated Ringer's 1,000 ml @ 0 mls/hr ONCE ONCE IV; Start 05/26/24 at 17:30; Stop 05/26/24 at 17:48; Status DC Acetaminophen 650 mg ONCE ONCE PO Last administered on 05/26/24at 22:12; Start 05/26/24 at 21:30; Stop 05/26/24 at 21:31; Status DC Ceftriaxone Sodium 2 gm ONCE ONCE IVPB Last administered on 05/26/24at 22:12; Start 05/26/24 at 21:30; Stop 05/26/24 at 21:31; Status DC Fentanyl Citrate 100 mcg ONCE ONCE IVP Last administered on 05/26/24at 22:11; Start 05/26/24 at 21:30; Stop 05/26/24 at 21:31; Status DC Sodium Chloride 1,000 ml @ 100 mls/hr Q10H IV Last administered on 05/29/24at 03:12; Start 05/26/24 at 22:30; Stop 06/25/24 at 22:29 Morphine Sulfate 2 mg Q4H PRN IVP Last administered on 05/27/24at 11:10; Start 05/26/24 at 22:30; Stop 05/27/24 at 12:16; Status DC Ondansetron HCl 4 mg Q6H PRN IVP Last administered on 05/28/24at 15:57; Start 05/26/24 at 22:30; Stop 06/25/24 at 22:29 Acetaminophen 650 mg Q4H PRN PO Last administered on 05/28/24at 21:03; Start 05/26/24 at 22:30; Stop 06/25/24 at 22:29 Piperacillin Sod/ Tazobactam Sod 3.375 gm Q8H IV Last administered on 05/29/24at 06:41; Start 05/26/24 at 22:30; Stop 06/05/24 at 22:29 Hydromorphone HCl 0.5 mg ONCE ONCE IVP Last administered on 05/27/24at 02:13; Start 05/27/24 at 02:00; Stop 05/27/24 at 02:01; Status DC Morphine Sulfate 4 mg Q2HPRN PRN IVP Last administered on 05/27/24at 23:17; Start 05/27/24 at 12:30; Stop 06/03/24 at 12:29 Hydromorphone HCl 2 mg Q4H PRN IVP; Start 05/27/24 at 12:30; Stop 05/27/24 at 12:19; Status DC Promethazine HCl 25 mg Q6H PRN IM Last administered on 05/27/24at 20:41; Start 05/27/24 at 20:30; Stop 06/26/24 at 20:29 Sodium Chloride 500 ml @ 250 mls/hr Q2H IV Last administered on 05/28/24at 05:00; Start 05/28/24 at 05:00; Stop 05/28/24 at 06:59; Status DC Sodium Chloride 1,000 ml @ 0 mls/hr Q0M IV; Start 05/28/24 at 07:00; Stop 06/27/24 at 06:59 Ketorolac Tromethamine 15 mg Q6H PRN IV Last administered on 05/29/24at 03:19; Start 05/28/24 at 22:00; Stop 06/02/24 at 21:59 SAMEER ZAMBRANO Jr. May 29, 2024 08:43
--- NOTE | 2024-05-29 10:04 | PN ---
[facility] PROGRESS NOTE Date of Service: May 29, 2024 Time of Service: 09:56 SUBJECTIVE: [This is a 43-year-old female who presented to the emergency department with abdominal pain CT abdomen and pelvis showed calculous cholecystitis. She is pending HIDA scan today. On evaluation, she complained of abdominal tenderness. We will be following up on HIDA scan results. Continue NPO. Continue with IV fluids. Continue with IV antibiotics. 05/29/2024 Patient evaluated in the room, patient continues with pain. Patient was noted with fever T-max 101.8 F. Patient's WBCs spiked up yesterday at 35.1, today 24.3. Due to fever and severe leukocytosis, we will be consulting Infectious Disease, for now patient will remain on IV Zosyn. HIDA scan came back positive with acute cholecystitis. Plans for robotic cholecystectomy possible open on 05/30/[address] Galaviz. ] REVIEW OF SYSTEMS CONSTITUTIONAL: Denies fevers, chills, or night sweats. No unintentional weight loss reported. NEUROLOGICAL: Denies headache, amaurosis fugax, motor weakness, sensory deficit, vertigo/spinning sensation, gait abnormalities, or tremors. ENT: No hearing loss, otalgia, otorrhea, rhinitis, rhinorrhea, hoarseness, or sore throat. CARDIOVASCULAR: Denies any exertional angina, dyspnea on exertion, orthopnea, paroxysmal nocturnal dyspnea, palpitations, life-threatening arrhythmias, claudication. PULMONARY: Denies any shortness of breath, cough, phlegm/sputum, hemoptysis, pleuritic chest pain. SLEEP: Denies morning headaches, daytime somnolence or napping. Denies difficulty falling asleep, staying asleep, waking from sleep. Denies knowledge of snoring. GASTROINTESTINAL: Denies any type of dysphagia to either liquids or solids. Denies nausea, vomiting, pyrosis, early satiety, abdominal pain, diarrhea, constipation, or changes in stool consistency or caliber. Denies coffee-ground emesis, hematemesis, hematochezia, or melanotic stools. GENITOURINARY: Denies frequency, urgency, nocturia, hematuria or incontinence (Storage/Irritative symptoms.) Low urinary stream, straining to void, urinary intermittency or hesitancy, splitting of the voiding stream, terminal dribbling. ENDOCRINOLOGIC: Denies polyuria, polydipsia, polyphagia or heat/cold intolerances. HEMATOLOGIC: Denies thrombophilia/previous clots, or coagulopathy/bleeding disorders. ONCOLOGIC: Denies personal history of malignancy. DERMATOLOGIC: Denies rashes or pruritus. PSYCHIATRIC: Denies any suicidal or homicidal ideation. Denies hallucinations. PHYSICAL EXAM GENERAL APPEARANCE: The patient is awake, alert, and oriented, in no acute cardiopulmonary distress. NEUROLOGICAL: Cranial nerves II-XII grossly intact. Motor is 5/5 in bilateral upper and lower extremities proximal to distal. No sensory deficits. HEENT: Face is symmetric. Pupils are equal and reactive. Extraocular movements are intact. NECK: Supple. No JVD. No thyromegaly. No submental, submandibular, pre- /postauricular, occipital or supraclavicular lymphadenopathy. CHEST: Normal chest expansion. No Telemetry. LUNGS: Absence of any rales, rhonchi or any wheezing. CARDIOVASCULAR: Regular. S1 and S2 normal. No appreciable rubs, murmurs or gallops. ABDOMEN: Soft, nontender, and nondistended. There is no rebound, voluntary guarding, or rigidity. : Deferred. No Roach. EXTREMITIES: Non-edematous and not cyanotic. No clubbing. Good capillary refill. SKIN: No skin breakdown. Vital Signs (last 8hr) Date Time Temp Pulse Resp B/P (MAP) Pulse Ox O2 Delivery O2 Flow Rate FiO2 05/29/24 08:00 98.2 87 20 113/69 97 Room Air 05/29/24 04:05 99.5 105 17 120/77 98 Room Air LABS: Laboratory: Test 05/29/24 04:14 05/28/24 05:58 05/28/24 03:58 Range/Units White Blood Count 24.3 H 4.8-10.8 K/uL Red Blood Count 3.79 L 4.00-5.50 MIL/uL Hemoglobin 11.6 L 12.0-16.0 g/dL Hematocrit 33.4 L 36-48 % Mean Corpuscular Volume 88.1 79-99 fL Mean Corpuscular Hemoglobin 30.6 27.0-33.0 pg Mean Corpuscular Hemoglobin Concent 34.7 32.0-36.0 g/dL Red Cell Distribution Width 12.9 11.0-15.5 % Platelet Count 331 130-400 K/uL Mean Platelet Volume 9.9 7.5-10.5 fL Nucleated Red Blood Cells 0.0 0.0-0.19 % Sodium Level 137 136-145 mmol/L Potassium Level 3.7 3.5-5.1 mmol/L Chloride Level 103 101-111 mmol/L Carbon Dioxide Level 26 21-32 mmol/L Blood Urea Nitrogen 6 L 7-18 mg/dL Creatinine 0.7 0.5-1.0 mg/dL Glomerular Filtration Rate Calc 111 >90 mL/min Random Glucose 143 H 70-105 mg/dL Total Calcium 7.8 L 8.5-10.1 mg/dL Lactic Acid Level 1.1 0.8-2.5 mmol/L Segmented Neutrophils % 79 H 40-70 % Band Neutrophils % 6 H 0-2 % Lymphocytes % (Manual) 4 L 22-44 % Monocytes % (Manual) 11 H 2-9 % Differential Comment MANUAL DIFFERENTIAL White Cell Morphology Comment VACUOLATION 1+ Platelet Morphology Comment See comments Red Blood Cell Morphology ANISO 1+ Procalcitonin 0.70 H 0.05-0.5 ng/mL Current Medications Medications (Trade) Dose Ordered Sig/Maricarmen Route PRN Reason Start Time Stop Time Status Last Admin Dose Admin Acetaminophen (TYLenol 325MG TAB) 650 mg Q4H PRN PO TEMPERATURE GREATER THAN 101.5 05/26/24 22:30 06/25/24 22:29 05/28/24 21:03 650 MG Hydromorphone HCl (DiLAUDid 2MG INJ) 2 mg Q4H PRN IVP SEVERE PAIN (7-10) 05/27/24 12:30 05/27/24 12:19 DC Ketorolac Tromethamine (toRADol) 15 mg Q6H PRN IV MODERATE PAIN (4-6) 05/28/24 22:00 06/02/24 21:59 05/29/24 03:19 15 MG Morphine Sulfate (morPHINE 2MG SYG) 2 mg Q4H PRN IVP SEVERE PAIN (7-10) 05/26/24 22:30 05/27/24 12:16 DC 05/27/24 11:10 2 MG Morphine Sulfate (morPHINE 4MG SYG) 4 mg Q2HPRN PRN IVP SEVERE PAIN (7-10) 05/27/24 12:30 4/4/25 12:29 05/27/24 23:17 4 MG Ondansetron HCl (zoFRAN 4MG INJ) 4 mg Q6H PRN IVP NAUSEA/VOMITING 05/26/24 22:30 06/25/24 22:29 05/28/24 15:57 4 MG Piperacillin Sod/ Tazobactam Sod (Zosyn 3.375gm+NS 50ml) 3.375 gm Q8H IV 05/26/24 22:30 06/05/24 22:05/29/24 06:41 3.375 GM Promethazine HCl (Phenergan) 25 mg Q6H PRN IM NAUSEA/VOMITING 05/27/24 20:30 06/26/24 20:05/27/24 20:41 25 MG Sodium Chloride 500 ml @ 250 mls/hr Q2H IV 05/28/24 05:00 05/28/24 06:59 DC 05/28/24 05:00 250 MLS/HR Sodium Chloride 1,000 ml @ 0 mls/hr Q0M IV 05/28/24 07:00 06/27/24 06:59 Sodium Chloride 1,000 ml @ 100 mls/hr Q10H IV 05/26/24 22:30 06/25/24 22:05/29/24 03:12 100 MLS/HR DIAGNOSTICS / RADIOLOGY: [ ] ASSESSMENT: [Sepsis, POA Severe leukocytosis and fever Acute calculous cholecystitis, POA Acute cholecystitis, POA Intractable abdominal pain, POA Hyponatremia, POA Leukocytosis, POA PLAN: [Admit medical surgical floor Patient is on clear liquid diet, NPO post midnight Continue with IV fluids Continue with IV antibiotics with Zosyn Patient is having persistent leukocytosis, and fever We will request blood cultures We will consult Infectious Disease due to severe leukocytosis and fever We will repeat labs in the morning Continue with pain management GI and DVT prophylaxis Patient is a full code Case discussed with juan [place] plan was formulated ATTESTATION BY PHYSICIAN I have seen and examined the patient. I reviewed the documentation, medical decision making, and treatment plan as noted by the mid-level provider above. I agree with the findings and plan of care. Jacki Avalos MD, JANICE B AGPCNP May 29, 2024 10:04
--- NOTE | 2024-05-29 10:20 | NUR ---
DR. SHERMAN AWARE OF CONSULT.
[2024-05-29] MEDS: FAMOTIDINE 20MG VIAL IV SCH (15:46)
--- NOTE | 2024-05-29 21:30 | PN ---
INFECTIOUS DISEASE FOLLOWUP NOTE DATE OF SERVICE: 05/29/2024 SUBJECTIVE: The patient is seen. No fever or chills. Abdominal pain is better. No bleeding tendency. No rashes or itchiness. No palpitation or orthopnea. He does currently have confirmed acute cholecystitis. PHYSICAL EXAMINATION: VITAL SIGNS: Temperature 97.0. EYES: No icterus. Pupils equal and reactive. HENT: No oral thrush seen. Moist oral mucosa. NECK: Supple. No JVD or thyromegaly. LUNGS: Good air entry. No rales, no rhonchi. CARDIOVASCULAR: S1, S2 regular. No murmur heard. ABDOMEN: Full, soft, nontender. Bowel sounds are present. CENTRAL NERVOUS SYSTEM: Awake, alert, oriented x 3. No focal deficits. SKIN: No rashes, no itchiness. LYMPHATIC: No peripheral lymphadenopathy. BACK: No deformity, no pressure ulcer. ASSESSMENT: A 43-year-old female with multiple problems including: * Acute cholecystitis. * Abdominal pain. * Leukocytosis. * Obesity. PLAN: * Continue Zosyn. * Continue pain management. * Continue antiemetic. * Monitor electrolytes and correct as needed. * The patient is scheduled to undergo cholecystectomy tomorrow. TID: [id number] RECEIPT: [id number]
[2024-05-30] VITALS (24 sets, daily range): BP systolic 95–133; BP diastolic 52–79; PULSE 65–112; RESP 16–20; TEMP 97.7–100.2; O2SAT 95–97
[2024-05-30 04:32] LABS: HEMATOCRIT 31.5 % (36-48); MEAN CORPUSCULAR HGB CONC 33.3 g/dL (32.0-36.0); RED BLOOD CELL COUNT(AUTO) 3.5 MIL/uL (4.00-5.50); RED CELL DISTRIBUTION WIDTH 13.1 % (11.0-15.5); WHITE BLOOD COUNT (AUTO) 14.9 K/uL (4.8-10.8)
[2024-05-30 04:46] LABS: CREATININE 0.7 mg/dL (0.5-1.0); POTASSIUM 3.3 mmol/L (3.5-5.1)
[2024-05-30] MEDS: INDOCYANINE GREEN 25 MG VIAL IJ ONE (07:40)
[2024-05-30 07:55] LABS: INR 1.08 (0.85-1.15); PROTHROMBIN TIME 11.4 SEC (9.6-11.6)
[2024-05-30 07:56] LABS: PARTIAL THROMBOPLASTIN TIME 31.6 SEC (26.3-35.5)
[2024-05-30] MEDS ORDERED: GLYCOPYRROLATE 0.2 MG/ML 5 ML VIAL ONE (08:03)
[2024-05-30] MEDS ORDERED: LIDOCAINE HCL MPF 1% 5ML VIAL ONE (08:03)
[2024-05-30] MEDS ORDERED: NEOSTIGMINE METHYLSULFATE 1MG/ML IV ONE (08:03)
[2024-05-30] MEDS ORDERED: proPOFol 10 MG/ML 20ML VIAL IV ONE (08:03)
[2024-05-30] MEDS ORDERED: FENTanyl CITRate PF 50 MCG/1 ML 2ML VIAL ONE ×3 (08:04→10:35)
[2024-05-30] MEDS ORDERED: rocuRONium bROMide 10MG/1ML 5ML VL ONE ×2 (08:04→09:31)
[2024-05-30] MEDS ORDERED: MIDAZOLAM HCL 1 MG/ML 2ML VIAL ONE (08:04)
[2024-05-30] MEDS ORDERED: ondanSETRON 4MG INJ ONE (08:07)
[2024-05-30] MEDS ORDERED: dexaMETHasone SOD PHOSPHATE 10MG/ML 1ML VIAL ONE (08:07)
[2024-05-30] MEDS ORDERED: phenylEPHRINE HCL 10 MG/ML 1ML VIAL IV ONE (08:59)
[2024-05-30] MEDS ORDERED: BUPIvacaine/PF 0.5% 10ML VIAL ONE (09:03)
[2024-05-30] MEDS: SCOPOLAMINE HYDROBROMIDE 1 EACH ADH..PATCH TD ONE (09:13)
[2024-05-30] MEDS: BUPIvacaine/PF 0.5% 30ML VIAL INJ ONE (09:36)
[2024-05-30] MEDS: ondanSETRON 4MG INJ ONE (11:13)
--- NOTE | 2024-05-30 13:31 | OP ---
Operative Note: DATE OF PROCEDURE: 05/30/24 SURGEON: SURINDER VAZ MD SOLAR PHOTOVOLTAIC ELECTRICIAN: [] ANESTHESIA: [] General ANESTHESIOLOGIST/SHORE WORKER: [] PREOPERATIVE DIAGNOSIS: [] Acute cholecystitis POSTOPERATIVE DIAGNOSIS: [] Acute gangrenous cholecystitis SYNOPSIS: [] PROCEDURE: [] Robotic cholecystectomy ESTIMATED BLOOD LOSS: [] 50 cc INDICATIONS: [] DESCRIPTION OF PROCEDURE: [] With the patient prepped and draped we did a supraumbilical incision. Using direct technique I placed a balloon trocar. Two da Polly trochars were placed in each side of the abdomen under direct vision. A 5 mm trocar was placed in the right lateral side. I then went to the console and the robot was docked. I took all adhesions from the gallbladder and I started dissecting the triangle of Calot. The gallbladder seems to be gangrenous. I need to decompress in order to be able to hold the gallbladder. It was also friable. we used firefly to identify the cystic duct and CBD.The cystic duct and the cystic artery were clearly identified and both were double clipped and divided. I took the gallbladder from below using cautery dissection. After the gallbladder was completely removed and adequate hemostasis was obtained I remove all the instruments from the abdomen. I undocked the robot and I came back to the bedside of the patient. I confirm hemostasis suction and irrigate and I placed the gallbladder in a bag. I injected 40 cc of Marcaine 0.25% as an abdominal tap block under direct vision. I injected 20 cc in each side of the abdomen. I decided to place a ANITA 10. That was left under the liver bed. I also placed hemostatic powder to help hemostasis. I took out all the trochars under direct vision and the gallbladder through the supraumbilical incision. I closed the fascia of the supraumbilical incision with a 0 Vicryl [id number]. All incisions were closed with 4-0 Monocryl and Steri-Strips. The patient was transferred stable to the recovery room. SURINDER VAZ MD May 30, 2024 13:31
[2024-05-30] MEDS: BENZOCAINE/MENTH/CETYLPYRD CL 1 EACH LOZENGE MM PRN (13:34)
--- NOTE | 2024-05-30 13:44 | PN ---
[facility] PROGRESS NOTE Date of Service: May 30, 2024 Time of Service: 13:41 SUBJECTIVE: [This is a 43-year-old female who presented to the emergency department with abdominal pain CT abdomen and pelvis showed calculous cholecystitis. She is pending HIDA scan today. On evaluation, she complained of abdominal tenderness. We will be following up on HIDA scan results. Continue NPO. Continue with IV fluids. Continue with IV antibiotics. 05/29/2024 Patient evaluated in the room, patient continues with pain. Patient was noted with fever T-max 101.8 F. Patient's WBCs spiked up yesterday at 35.1, today 24.3. Due to fever and severe leukocytosis, we will be consulting Infectious Disease, for now patient will remain on IV Zosyn. HIDA scan came back positive with acute cholecystitis. Plans for robotic cholecystectomy possible open on 05/30/[address] Galaviz. ] 05/30/24 patient was evaluated in the room, she is status post robotic cholecystectomy secondary to acute gangrenous cholecystitis. Patient is alert and oriented x3, she complains of sore throat possibly due to extubation, we will give her Cepacol lozenges. We will continue to monitor and follow postop recommendations from Dr. Galaviz. REVIEW OF SYSTEMS CONSTITUTIONAL: Denies fevers, chills, or night sweats. No unintentional weight loss reported. NEUROLOGICAL: Denies headache, amaurosis fugax, motor weakness, sensory deficit, vertigo/spinning sensation, gait abnormalities, or tremors. ENT: No hearing loss, otalgia, otorrhea, rhinitis, rhinorrhea, hoarseness, or sore throat. CARDIOVASCULAR: Denies any exertional angina, dyspnea on exertion, orthopnea, paroxysmal nocturnal dyspnea, palpitations, life-threatening arrhythmias, claudication. PULMONARY: Denies any shortness of breath, cough, phlegm/sputum, hemoptysis, pleuritic chest pain. SLEEP: Denies morning headaches, daytime somnolence or napping. Denies difficulty falling asleep, staying asleep, waking from sleep. Denies knowledge of snoring. GASTROINTESTINAL: Denies any type of dysphagia to either liquids or solids. Denies nausea, vomiting, pyrosis, early satiety, abdominal pain, diarrhea, constipation, or changes in stool consistency or caliber. Denies coffee-ground emesis, hematemesis, hematochezia, or melanotic stools. GENITOURINARY: Denies frequency, urgency, nocturia, hematuria or incontinence (Storage/Irritative symptoms.) Low urinary stream, straining to void, urinary intermittency or hesitancy, splitting of the voiding stream, terminal dribbling. ENDOCRINOLOGIC: Denies polyuria, polydipsia, polyphagia or heat/cold intolerances. HEMATOLOGIC: Denies thrombophilia/previous clots, or coagulopathy/bleeding disorders. ONCOLOGIC: Denies personal history of malignancy. DERMATOLOGIC: Denies rashes or pruritus. PSYCHIATRIC: Denies any suicidal or homicidal ideation. Denies hallucinations. PHYSICAL EXAM GENERAL APPEARANCE: The patient is awake, alert, and oriented, in no acute cardiopulmonary distress. NEUROLOGICAL: Cranial nerves II-XII grossly intact. Motor is 5/5 in bilateral upper and lower extremities proximal to distal. No sensory deficits. HEENT: Face is symmetric. Pupils are equal and reactive. Extraocular movements are intact. NECK: Supple. No JVD. No thyromegaly. No submental, submandibular, pre- /postauricular, occipital or supraclavicular lymphadenopathy. CHEST: Normal chest expansion. No Telemetry. LUNGS: Absence of any rales, rhonchi or any wheezing. CARDIOVASCULAR: Regular. S1 and S2 normal. No appreciable rubs, murmurs or gallops. ABDOMEN: Soft, nontender, and nondistended. There is no rebound, voluntary guarding, or rigidity. : Deferred. No Roach. EXTREMITIES: Non-edematous and not cyanotic. No clubbing. Good capillary refill. SKIN: No skin breakdown. Vital Signs (last 8hr) Date Time Temp Pulse Resp B/P (MAP) Pulse Ox O2 Delivery O2 Flow Rate FiO2 05/30/24 12:15 66 18 116/73 97 Room Air 05/30/24 12:00 97.7 75 18 114/79 95 Room Air 05/30/24 11:45 97.7 75 18 110/53 94 Room Air 05/30/24 11:30 97.7 75 18 113/58 93 Room Air 05/30/24 11:26 98.1 85 17 117/69 95 Nasal Cannula 2.0 05/30/24 11:21 81 18 112/66 94 Nasal Cannula 2.0 05/30/24 11:20 95 Room Air* 2 N/A Nasal Cannula* 05/30/24 11:16 84 19 108/66 94 Nasal Cannula 2.0 05/30/24 11:11 90 18 113/64 95 Nasal Cannula 2.0 05/30/24 11:06 87 16 101/56 94 Nasal Cannula 2.0 05/30/24 11:01 92 18 107/56 95 Nasal Cannula 2.0 05/30/24 10:56 87 19 103/55 96 Nasal Cannula 2.0 05/30/24 10:51 89 17 100/55 98 Nasal Cannula 2.0 05/30/24 10:46 92 18 97/52 98 Nasal Cannula 2.0 05/30/24 10:41 97.7 89 20 95/52 98 Nonrebreathing Mask 10.0 05/30/24 08:00 99.3 87 18 111/74 99 Room Air LABS: Laboratory: Test 05/30/24 07:34 05/30/24 03:50 Range/Units Prothrombin Time 11.4 9.6-11.6 SEC Prothromb Time International Ratio 1.08 0.85-1.15 Activated Partial Thromboplast Time 31.6 26.3-35.5 SEC White Blood Count 14.9 #H 4.8-10.8 K/uL Red Blood Count 3.50 L 4.00-5.50 MIL/uL Hemoglobin 10.5 L 12.0-16.0 g/dL Hematocrit 31.5 L 36-48 % Mean Corpuscular Volume 90.0 79-99 fL Mean Corpuscular Hemoglobin 30.0 27.0-33.0 pg Mean Corpuscular Hemoglobin Concent 33.3 32.0-36.0 g/dL Red Cell Distribution Width 13.1 11.0-15.5 % Platelet Count 329 130-400 K/uL Mean Platelet Volume 9.9 7.5-10.5 fL Nucleated Red Blood Cells 0.0 0.0-0.19 % Sodium Level 140 136-145 mmol/L Potassium Level 3.3 L 3.5-5.1 mmol/L Chloride Level 106 101-111 mmol/L Carbon Dioxide Level 26 21-32 mmol/L Blood Urea Nitrogen 9 7-18 mg/dL Creatinine 0.7 0.5-1.0 mg/dL Glomerular Filtration Rate Calc 111 >90 mL/min Random Glucose 107 H 70-105 mg/dL Total Calcium 7.5 L 8.5-10.1 mg/dL Current Medications Medications (Trade) Dose Ordered Sig/Maricarmen Route PRN Reason Start Time Stop Time Status Last Admin Dose Admin Acetaminophen (TYLenol 325MG TAB) 650 mg Q4H PRN PO TEMPERATURE GREATER THAN 101.5 05/26/24 22:30 06/25/24 22:29 05/28/24 21:03 650 MG Benzocaine (Cepacol Sore Throat Lozenge) 1 each Q4H PRN MM SORE THROAT 05/30/24 13:00 06/29/24 12:59 05/30/24 13:34 1 EACH Famotidine (Pepcid 20mg Vial) 20 mg BID IV 05/29/24 15:00 06/28/24 14:59 05/29/24 21:24 20 MG Hydromorphone HCl (DiLAUDid 2MG INJ) 2 mg Q4H PRN IVP SEVERE PAIN (7-10) 05/27/24 12:30 05/27/24 12:19 DC Ketorolac Tromethamine (toRADol) 15 mg Q6H PRN IV MODERATE PAIN (4-6) 05/28/24 22:00 06/02/24 21:59 05/30/24 01:41 15 MG Morphine Sulfate (morPHINE 2MG SYG) 2 mg Q4H PRN IVP SEVERE PAIN (7-10) 05/26/24 22:30 05/27/24 12:16 DC 05/27/24 11:10 2 MG Morphine Sulfate (morPHINE 4MG SYG) 4 mg Q2HPRN PRN IVP SEVERE PAIN (7-10) 05/27/24 12:30 06/03/24 12:29 05/27/24 23:17 4 MG Ondansetron HCl (zoFRAN 4MG INJ) 4 mg Q6H PRN IVP NAUSEA/VOMITING 05/26/24 22:30 06/25/24 22:29 05/28/24 15:57 4 MG Piperacillin Sod/ Tazobactam Sod (Zosyn 3.375gm+NS 50ml) 3.375 gm Q8H IV 05/26/24 22:30 06/05/24 22:29 05/30/24 06:16 3.375 GM Promethazine HCl (Phenergan) 25 mg Q6H PRN IM NAUSEA/VOMITING 05/27/24 20:30 06/26/24 20:29 05/27/24 20:41 25 MG Sodium Chloride 500 ml @ 250 mls/hr Q2H IV 05/28/24 05:00 05/28/24 06:59 DC 05/28/24 05:00 250 MLS/HR Sodium Chloride 1,000 ml @ 0 mls/hr Q0M IV 05/28/24 07:00 05/30/24 07:30 DC Sodium Chloride 1,000 ml @ 100 mls/hr Q10H IV 05/26/24 22:30 06/25/24 22:29 05/29/24 21:30 100 MLS/HR DIAGNOSTICS / RADIOLOGY: [ ] ASSESSMENT: [Sepsis, POA Severe leukocytosis and fever Acute calculous cholecystitis, POA Acute cholecystitis, POA Intractable abdominal pain, POA Hyponatremia, POA Leukocytosis, POA PLAN: [Admit medical surgical floor Follow postop recommendations from Dr. Kruger Status post robotic cholecystectomy due to acute gangrenous cholecystitis Continue with IV fluids Continue with IV antibiotics with Zosyn Patient is having persistent leukocytosis, and fever We will follow up with blood cultures Appreciate recommendations from Dr. Lion We will repeat labs in the morning Continue with pain management GI and DVT prophylaxis Patient is a full code Case discussed with Dr. Zapata, above plan was formulated ATTESTATION BY PHYSICIAN I have seen and examined the patient. I reviewed the documentation, medical decision making, and treatment plan as noted by the mid-level provider above. I agree with the findings and plan of care. Jacki Avalos MD, JANICE B AGPCEBONIE May 30, 2024 13:44
--- NOTE | 2024-05-30 21:05 | PN ---
INFECTIOUS DISEASE PROGRESS NOTE Date of Service: May 30, 2024 SUBJECTIVE: This is a 43-year-old female patient who was seen and examined at bedside in room 329. Patient is awake, alert and oriented x3. Patient is status post robotic cholecystectomy today. Pain is controlled. No nausea or vomiting reported. The WBC has improved to 14.9 today from 24.3 yesterday. Patient had a low-grade fever of 100.2 last night at mid night, current temperature however is 98.1. We will continue on Zosyn IV every 8 hours. PHYSICAL EXAM EYES: Anicteric. Pupils equal and reactive. HENT: No oral thrush seen, moist Oral mucosa. NECK: Supple, no JVD or thyromegaly. LUNGS: Good air entry. No rales, no rhonchi. CARDIOVASCULAR: S1, S2 regular. No murmur heard. ABDOMEN: Soft, non tender, bowel sounds present, no organomegaly. Abdominal surgical incisions. CENTRAL NERVOUS SYSTEM: Awake, alert, oriented x 3. No focal deficits. SKIN: No rashes, no swelling. LYMPHATICS: No peripheral lymphadenopathy. MUSCULOSKELETAL: No joint swelling, erythema or tenderness. EXTREMITIES: No cyanosis or clubbing BACK: No deformity, no pressure ulcer. GENITOURINARY: No dysuria or hematuria. Vital Sign (Last 12 Hours) 05/30/24 05/30/24 05/30/24 05/30/24 10:41 10:46 10:51 10:56 Temp 97.7 Pulse 89 92 89 87 Resp 20 18 17 19 B/P (MAP) 95/52 97/52 100/55 103/55 Pulse Ox 98 98 98 96 O2 Delivery Nonrebreathing Mask Nasal Cannula Nasal Cannula Nasal Cannula O2 Flow Rate 10.0 2.0 2.0 2.0 05/30/24 05/30/24 05/30/24 05/30/24 11:01 11:06 11:11 11:16 Pulse 92 87 90 84 Resp 18 16 18 19 B/P (MAP) 107/56 101/56 113/64 108/66 Pulse Ox 95 94 95 94 O2 Delivery Nasal Cannula Nasal Cannula Nasal Cannula Nasal Cannula O2 Flow Rate 2.0 2.0 2.0 2.0 05/30/24 05/30/24 05/30/24 05/30/24 11:20 11:21 11:26 11:30 Temp 98.1 97.7 Pulse 81 85 75 Resp 18 17 18 B/P (MAP) 112/66 117/69 113/58 Pulse Ox 95 94 95 93 O2 Delivery Room Air* Nasal Cannula Nasal Cannula Room Air Nasal Cannula* O2 Flow Rate 2 2.0 2.0 FiO2 N/A 05/30/24 05/30/24 05/30/24 05/30/24 11:45 12:00 12:15 12:45 Temp 97.7 97.7 Pulse 75 75 66 71 Resp 18 18 18 18 B/P (MAP) 110/53 114/79 116/73 120/56 Pulse Ox 94 95 97 97 O2 Delivery Room Air Room Air Room Air Room Air 05/30/24 05/30/24 05/30/24 05/30/24 13:35 14:15 15:15 16:15 Pulse 65 74 77 79 Resp 18 18 18 18 B/P (MAP) 110/71 120/62 129/72 133/74 Pulse Ox 97 97 96 94 O2 Delivery Room Air LABS: Laboratory: Test 05/30/24 07:34 05/30/24 03:50 Range/Units Prothrombin Time 11.4 9.6-11.6 SEC Prothromb Time International Ratio 1.08 0.85-1.15 Activated Partial Thromboplast Time 31.6 26.3-35.5 SEC White Blood Count 14.9 #H 4.8-10.8 K/uL Red Blood Count 3.50 L 4.00-5.50 MIL/uL Hemoglobin 10.5 L 12.0-16.0 g/dL Hematocrit 31.5 L 36-48 % Mean Corpuscular Volume 90.0 79-99 fL Mean Corpuscular Hemoglobin 30.0 27.0-33.0 pg Mean Corpuscular Hemoglobin Concent 33.3 32.0-36.0 g/dL Red Cell Distribution Width 13.1 11.0-15.5 % Platelet Count 329 130-400 K/uL Mean Platelet Volume 9.9 7.5-10.5 fL Nucleated Red Blood Cells 0.0 0.0-0.19 % Sodium Level 140 136-145 mmol/L Potassium Level 3.3 L 3.5-5.1 mmol/L Chloride Level 106 101-111 mmol/L Carbon Dioxide Level 26 21-32 mmol/L Blood Urea Nitrogen 9 7-18 mg/dL Creatinine 0.7 0.5-1.0 mg/dL Glomerular Filtration Rate Calc 111 >90 mL/min Random Glucose 107 H 70-105 mg/dL Total Calcium 7.5 L 8.5-10.1 mg/dL ASSESSMENT: Acute cholecystitis, status post robotic cholecystectomy. Leukocytosis. PLAN: Continue Zosyn IV every 8 hours. We will follow up on the culture results. Continue pain management. Continue GI prophylaxis. We will monitor electrolytes. This case was reviewed and discussed with my supervising physician and the above assessment and plan was formulated and agreed upon. ATTESTATION BY PHYSICIAN I have seen and examined the patient. I reviewed the documentation, medical decision making, and treatment plan as noted by the mid-level provider above. I agree with the findings and plan of care. YULISSA SHERMAN MD, [facility] L [facility] May 30, 2024 21:05
[2024-05-30] MEDS: MELATONIN 5 MG TABLET PO ONE (22:19)
[2024-05-30] MEDS ORDERED: PoTASSium chloRIDE 20MEQ/100ML 100 ML IV PRN (23:00)
[2024-05-30] MEDS ORDERED: PoTASSium chl 10% ELIXIR 20MEQ 20 MEQ/15 ML UDCUP PO PRN (23:00)
[2024-05-30] MEDS: PoTASSium chloRIDE 20MEQ ER 20 MEQ ERTAB PO PRN (23:27)
[2024-05-31] MEDS: SIMETHICONE 80 MG TAB.CHEW PO PRN (00:03)
[2024-05-31 01:04] VITALS: BP 130/82; PULSE 71; RESP 18; TEMP 98.1
[2024-05-31 04:11] VITALS: BP 109/69; PULSE 60; RESP 17; TEMP 97.6
[2024-05-31 04:14] LABS: BASOPHILS # (AUTO) 0.02 K/uL (0.00-0.20); BASOPHILS % (AUTO) 0.2 % (0.0-5.0); IMMATURE GRANULOCYTE ABSOLUTE 0.11 K/uL (0-1); LYMPHOCYTES # (AUTO) 1.1 K/uL (1.0-4.8); LYMPHOCYTES % (AUTO) 8.6 % (21.0-51.0); MEAN CORPUSCULAR HEMOGLOBIN 30.6 pg (27.0-33.0); MEAN CORPUSCULAR HGB CONC 33.9 g/dL (32.0-36.0); MEAN CORPUSCULAR VOLUME 90.3 fL (79-99); MONOCYTES # (AUTO) 1.1 K/uL (0.1-1.0); MONOCYTES % (AUTO) 8.6 % (3.0-13.0); NEUTROPHILS # (AUTO) 10.8 K/uL (1.8-7.7); NEUTROPHILS % (AUTO) 81.8 % (40.0-77.0); PLATELET COUNT (AUTO) 336 K/uL (130-400); RED CELL DISTRIBUTION WIDTH 13.1 % (11.0-15.5); WHITE BLOOD COUNT (AUTO) 13.2 K/uL (4.8-10.8)
[2024-05-31 04:42] LABS: ALBUMIN 1.7 g/dL (3.5-5.0); BILIRUBIN,TOTAL 0.2 mg/dL (0.2-1.0); CREATININE 0.6 mg/dL (0.5-1.0); POTASSIUM 4.2 mmol/L (3.5-5.1); TOTAL PROTEIN, SERUM 5.8 g/dL (6.0-8.3)
[2024-05-31 08:00] VITALS: BP 112/71; PULSE 60; RESP 18; TEMP 97.5; O2SAT 100
[2024-05-31 16:00] VITALS: BP 100/72; PULSE 60; RESP 18; TEMP 97.7
--- NOTE | 2024-05-31 16:22 | PN ---
INFECTIOUS DISEASE PROGRESS NOTE Date of Service: May 31, 2024 SUBJECTIVE: This is a 43-year-old female patient who was seen and examined at bedside in room 329. Patient is status post robotic cholecystectomy day # 1. Per report the ANITA drain output was 120 mL in 24 hours and already drained 60 cc this morning. Patient is afebrile, temperature is 97.5 and the WBC has trended down to 13.2. Patient is currently on Zosyn IV. From Infectious Disease standpoint patient is cleared to be discharged to home when cleared by General surgery. No antibiotics needed on discharge PHYSICAL EXAM EYES: Anicteric. Pupils equal and reactive. HENT: No oral thrush seen, moist Oral mucosa. NECK: Supple, no JVD or thyromegaly. LUNGS: Good air entry. No rales, no rhonchi. CARDIOVASCULAR: S1, S2 regular. No murmur heard. ABDOMEN: Soft, non tender, bowel sounds present, no organomegaly. Abdominal surgical incisions. ANITA drain. CENTRAL NERVOUS SYSTEM: Awake, alert, oriented x 3. No focal deficits. SKIN: No rashes, no swelling. LYMPHATICS: No peripheral lymphadenopathy. MUSCULOSKELETAL: No joint swelling, erythema or tenderness. EXTREMITIES: No cyanosis or clubbing BACK: No deformity, no pressure ulcer. GENITOURINARY: No dysuria or hematuria. Vital Sign (Last 12 Hours) 05/31/24 08:00 Temp 97.5 Pulse 60 Resp 18 B/P (MAP) 112/71 Pulse Ox 100 O2 Delivery Room Air Intake & Output (last 24hrs) 05/30/24 05/30/24 05/31/24 14:59 22:59 06:59 Intake Total 530.0 ml 170.0 ml Output Total 60 ml 60 ml 60 ml Balance -60 ml 470.0 ml 110.0 ml LABS: Laboratory: Test 05/31/24 03:35 05/30/24 07:34 Range/Units White Blood Count 13.2 H 4.8-10.8 K/uL Red Blood Count 3.10 L 4.00-5.50 MIL/uL Hemoglobin 9.5 L 12.0-16.0 g/dL Hematocrit 28.0 L 36-48 % Mean Corpuscular Volume 90.3 79-99 fL Mean Corpuscular Hemoglobin 30.6 27.0-33.0 pg Mean Corpuscular Hemoglobin Concent 33.9 32.0-36.0 g/dL Red Cell Distribution Width 13.1 11.0-15.5 % Platelet Count 336 130-400 K/uL Mean Platelet Volume 10.0 7.5-10.5 fL Immature Granulocyte % (Auto) 0.8 0-1 % Neutrophils (%) (Auto) 81.8 H 40.0-77.0 % Lymphocytes (%) (Auto) 8.6 L 21.0-51.0 % Monocytes (%) (Auto) 8.6 3.0-13.0 % Eosinophils (%) (Auto) 0.0 0.0-8.0 % Basophils (%) (Auto) 0.2 0.0-5.0 % Neutrophils # (Auto) 10.8 H 1.8-7.7 K/uL Lymphocytes # (Auto) 1.1 1.0-4.8 K/uL Monocytes # (Auto) 1.1 H 0.1-1.0 K/uL Eosinophils # (Auto) 0.00 0.00-0.70 K/uL Basophils # (Auto) 0.02 0.00-0.20 K/uL Absolute Immature Granulocyte (auto 0.11 0-1 K/uL Nucleated Red Blood Cells 0.0 0.0-0.19 % Sodium Level 137 136-145 mmol/L Potassium Level 4.2 3.5-5.1 mmol/L Chloride Level 104 101-111 mmol/L Carbon Dioxide Level 25 21-32 mmol/L Blood Urea Nitrogen 7 7-18 mg/dL Creatinine 0.6 0.5-1.0 mg/dL Glomerular Filtration Rate Calc 115 >90 mL/min Random Glucose 132 H 70-105 mg/dL Total Calcium 7.5 L 8.5-10.1 mg/dL Total Bilirubin 0.2 0.2-1.0 mg/dL Aspartate Amino Transf (AST/SGOT) 79 H 10-37 U/L Alanine Aminotransferase (ALT/SGPT) 98 H 12-78 U/L Alkaline Phosphatase 121 50-136 U/L Total Protein 5.8 L 6.0-8.3 g/dL Albumin 1.7 L 3.5-5.0 g/dL Prothrombin Time 11.4 9.6-11.6 SEC Prothromb Time International Ratio 1.08 0.85-1.15 Activated Partial Thromboplast Time 31.6 26.3-35.5 SEC ASSESSMENT: Acute cholecystitis, s/p robotic cholecystectomy on 05/30/2024. Leukocytosis, resolving. Obesity. PLAN: From Infectious Disease standpoint patient is cleared to be discharged to home once cleared by General surgery. No antibiotics needed on discharge. This case was reviewed and discussed with my supervising physician and the above assessment and plan was formulated and agreed upon. ATTESTATION BY PHYSICIAN I have seen and examined the patient. I reviewed the documentation, medical decision making, and treatment plan as noted by the mid-level provider above. I agree with the findings and plan of care. YULISSA SHERMAN MD, MIRTA L [facility] May 31, 2024 16:22
--- NOTE | 2024-05-31 17:57 | PN ---
[facility] PROGRESS NOTE Date of Service: May 31, 2024 Time of Service: 17:53 SUBJECTIVE: [This is a 43-year-old female who presented to the emergency department with abdominal pain CT abdomen and pelvis showed calculous cholecystitis. She is pending HIDA scan today. On evaluation, she complained of abdominal tenderness. We will be following up on HIDA scan results. Continue NPO. Continue with IV fluids. Continue with IV antibiotics. 05/29/2024 Patient evaluated in the room, patient continues with pain. Patient was noted with fever T-max 101.8 F. Patient's WBCs spiked up yesterday at 35.1, today 24.3. Due to fever and severe leukocytosis, we will be consulting Infectious Disease, for now patient will remain on IV Zosyn. HIDA scan came back positive with acute cholecystitis. Plans for robotic cholecystectomy possible open on 05/30/[address] Galaviz. ] 05/30/24 patient was evaluated in the room, she is status post robotic cholecystectomy secondary to acute gangrenous cholecystitis. Patient is alert and oriented x3, she complains of sore throat possibly due to extubation, we will give her Cepacol lozenges. We will continue to monitor and follow postop recommendations from Dr. Galaviz. 05/31/2024. Patient seen and examined along with RN. Continues to improve she is tolerating clear liquid we will advanced diet to GI soft white count still elevated but coming down afebrile. REVIEW OF SYSTEMS CONSTITUTIONAL: Denies fevers, chills, or night sweats. No unintentional weight loss reported. NEUROLOGICAL: Denies headache, amaurosis fugax, motor weakness, sensory deficit, vertigo/spinning sensation, gait abnormalities, or tremors. ENT: No hearing loss, otalgia, otorrhea, rhinitis, rhinorrhea, hoarseness, or sore throat. CARDIOVASCULAR: Denies any exertional angina, dyspnea on exertion, orthopnea, paroxysmal nocturnal dyspnea, palpitations, life-threatening arrhythmias, claudication. PULMONARY: Denies any shortness of breath, cough, phlegm/sputum, hemoptysis, pleuritic chest pain. SLEEP: Denies morning headaches, daytime somnolence or napping. Denies difficulty falling asleep, staying asleep, waking from sleep. Denies knowledge of snoring. GASTROINTESTINAL: Denies any type of dysphagia to either liquids or solids. Denies nausea, vomiting, pyrosis, early satiety, abdominal pain, diarrhea, constipation, or changes in stool consistency or caliber. Denies coffee-ground emesis, hematemesis, hematochezia, or melanotic stools. GENITOURINARY: Denies frequency, urgency, nocturia, hematuria or incontinence (Storage/Irritative symptoms.) Low urinary stream, straining to void, urinary intermittency or hesitancy, splitting of the voiding stream, terminal dribbling. ENDOCRINOLOGIC: Denies polyuria, polydipsia, polyphagia or heat/cold intolerances. HEMATOLOGIC: Denies thrombophilia/previous clots, or coagulopathy/bleeding disorders. ONCOLOGIC: Denies personal history of malignancy. DERMATOLOGIC: Denies rashes or pruritus. PSYCHIATRIC: Denies any suicidal or homicidal ideation. Denies hallucinations. PHYSICAL EXAM GENERAL APPEARANCE: The patient is awake, alert, and oriented, in no acute cardiopulmonary distress. NEUROLOGICAL: Cranial nerves II-XII grossly intact. Motor is 5/5 in bilateral upper and lower extremities proximal to distal. No sensory deficits. HEENT: Face is symmetric. Pupils are equal and reactive. Extraocular movements are intact. NECK: Supple. No JVD. No thyromegaly. No submental, submandibular, pre- /postauricular, occipital or supraclavicular lymphadenopathy. CHEST: Normal chest expansion. No Telemetry. LUNGS: Absence of any rales, rhonchi or any wheezing. CARDIOVASCULAR: Regular. S1 and S2 normal. No appreciable rubs, murmurs or gallops. ABDOMEN: Soft, nontender, and nondistended. ANITA drain in place : Deferred. No Roach. EXTREMITIES: Non-edematous and not cyanotic. No clubbing. Good capillary refill. SKIN: No skin breakdown. Vital Signs (last 8hr) Date Time Temp Pulse Resp B/P (MAP) Pulse Ox O2 Delivery O2 Flow Rate FiO2 05/31/24 16:00 97.7 60 18 100/72 100 Room Air LABS: Laboratory: Test 05/31/24 03:35 05/30/24 07:34 Range/Units White Blood Count 13.2 H 4.8-10.8 K/uL Red Blood Count 3.10 L 4.00-5.50 MIL/uL Hemoglobin 9.5 L 12.0-16.0 g/dL Hematocrit 28.0 L 36-48 % Mean Corpuscular Volume 90.3 79-99 fL Mean Corpuscular Hemoglobin 30.6 27.0-33.0 pg Mean Corpuscular Hemoglobin Concent 33.9 32.0-36.0 g/dL Red Cell Distribution Width 13.1 11.0-15.5 % Platelet Count 336 130-400 K/uL Mean Platelet Volume 10.0 7.5-10.5 fL Immature Granulocyte % (Auto) 0.8 0-1 % Neutrophils (%) (Auto) 81.8 H 40.0-77.0 % Lymphocytes (%) (Auto) 8.6 L 21.0-51.0 % Monocytes (%) (Auto) 8.6 3.0-13.0 % Eosinophils (%) (Auto) 0.0 0.0-8.0 % Basophils (%) (Auto) 0.2 0.0-5.0 % Neutrophils # (Auto) 10.8 H 1.8-7.7 K/uL Lymphocytes # (Auto) 1.1 1.0-4.8 K/uL Monocytes # (Auto) 1.1 H 0.1-1.0 K/uL Eosinophils # (Auto) 0.00 0.00-0.70 K/uL Basophils # (Auto) 0.02 0.00-0.20 K/uL Absolute Immature Granulocyte (auto 0.11 0-1 K/uL Nucleated Red Blood Cells 0.0 0.0-0.19 % Sodium Level 137 136-145 mmol/L Potassium Level 4.2 3.5-5.1 mmol/L Chloride Level 104 101-111 mmol/L Carbon Dioxide Level 25 21-32 mmol/L Blood Urea Nitrogen 7 7-18 mg/dL Creatinine 0.6 0.5-1.0 mg/dL Glomerular Filtration Rate Calc 115 >90 mL/min Random Glucose 132 H 70-105 mg/dL Total Calcium 7.5 L 8.5-10.1 mg/dL Total Bilirubin 0.2 0.2-1.0 mg/dL Aspartate Amino Transf (AST/SGOT) 79 H 10-37 U/L Alanine Aminotransferase (ALT/SGPT) 98 H 12-78 U/L Alkaline Phosphatase 121 50-136 U/L Total Protein 5.8 L 6.0-8.3 g/dL Albumin 1.7 L 3.5-5.0 g/dL Prothrombin Time 11.4 9.6-11.6 SEC Prothromb Time International Ratio 1.08 0.85-1.15 Activated Partial Thromboplast Time 31.6 26.3-35.5 SEC Current Medications Medications (Trade) Dose Ordered Sig/Maricarmen Route PRN Reason Start Time Stop Time Status Last Admin Dose Admin Acetaminophen (TYLenol 325MG TAB) 650 mg Q4H PRN PO TEMPERATURE GREATER THAN 101.5 05/26/24 22:30 06/25/24 22:29 05/28/24 21:03 650 MG Benzocaine (Cepacol Sore Throat Lozenge) 1 each Q4H PRN MM SORE THROAT 05/30/24 13:00 06/29/24 12:59 05/31/24 00:03 1 EACH Famotidine (Pepcid 20mg Vial) 20 mg BID IV 05/29/24 15:00 06/28/24 14:59 05/31/24 08:32 20 MG Hydromorphone HCl (DiLAUDid 2MG INJ) 2 mg Q4H PRN IVP SEVERE PAIN (7-10) 05/27/24 12:30 05/27/24 12:19 DC Ketorolac Tromethamine (toRADol) 15 mg Q6H PRN IV MODERATE PAIN (4-6) 05/28/24 22:00 06/02/24 21:59 05/31/24 00:04 15 MG Morphine Sulfate (morPHINE 2MG SYG) 2 mg Q4H PRN IVP SEVERE PAIN (7-10) 05/26/24 22:30 05/27/24 12:16 DC 05/27/24 11:10 2 MG Morphine Sulfate (morPHINE 4MG SYG) 4 mg Q2HPRN PRN IVP SEVERE PAIN (7-10) 05/27/24 12:30 06/03/24 12:29 05/30/24 16:52 4 MG Ondansetron HCl (zoFRAN 4MG INJ) 4 mg Q6H PRN IVP NAUSEA/VOMITING 05/26/24 22:30 06/25/24 22:29 05/28/24 15:57 4 MG Piperacillin Sod/ Tazobactam Sod (Zosyn 3.375gm+NS 50ml) 3.375 gm Q8H IV 05/26/24 22:30 06/05/24 22:29 05/31/24 14:58 3.375 GM Potassium Chloride 100 ml @ 100 mls/hr AD PRN IV POTASSIUM PROTOCOL 05/30/24 23:00 06/29/24 22:59 Potassium Chloride (K-Dur/Klor-Con 20meq) 20 meq AD PRN PO POTASSIUM PROTOCOL 05/30/24 23:00 06/29/24 22:59 05/30/24 23:56 20 MEQ Potassium Chloride (KCl 10% Elixir 20meq/15ml) 20 meq AD PRN PO POTASSIUM PROTOCOL 05/30/24 23:00 06/29/24 22:59 Promethazine HCl (Phenergan) 25 mg Q6H PRN IM NAUSEA/VOMITING 05/27/24 20:30 06/26/24 20:29 05/27/24 20:41 25 MG Simethicone (Mylicon) 80 mg PCHS PRN PO GI GAS 05/31/24 00:00 06/30/24 00:00 05/31/24 00:03 80 MG Sodium Chloride 500 ml @ 250 mls/hr Q2H IV 05/28/24 05:00 05/28/24 06:59 DC 05/28/24 05:00 250 MLS/HR Sodium Chloride 1,000 ml @ 0 mls/hr Q0M IV 05/28/24 07:00 05/30/24 07:30 DC Sodium Chloride 1,000 ml @ 100 mls/hr Q10H IV 05/26/24 22:30 06/25/24 22:29 05/31/24 02:37 100 MLS/HR DIAGNOSTICS / RADIOLOGY: [ ] ASSESSMENT: [Sepsis, POA Severe leukocytosis and fever Acute calculous cholecystitis, POA Acute cholecystitis, POA Intractable abdominal pain, POA Hyponatremia, POA Leukocytosis, POA PLAN: Status post robotic cholecystectomy due to acute gangrenous cholecystitis Advanced diet as tolerated. Continue with IV antibiotics with Zosyn ID is on board we will follow recommendations. We will follow up with blood cultures We will repeat labs in the morning Continue with pain management GI and DVT prophylaxis Patient is a full code STEPHEN PIERCE MD May 31, 2024 17:57
[2024-05-31 19:52] VITALS: O2SAT 100
[2024-05-31 20:49] VITALS: BP 112/74; PULSE 76; RESP 19; TEMP 97.6
[2024-05-31] MEDS: MELATONIN 5 MG TABLET PO SCH (23:04)
[2024-06-01] VITALS (10 sets, daily range): BP systolic 95–122; BP diastolic 61–75; PULSE 64–90; RESP 16–21; TEMP 97.4–98.7; O2SAT 98–100
[2024-06-01 04:42] LABS: BASOPHILS # (AUTO) 0.02 K/uL (0.00-0.20); BASOPHILS % (AUTO) 0.2 % (0.0-5.0); EOSINOPHILS # (AUTO) 0.11 K/uL (0.00-0.70); EOSINOPHILS % (AUTO) 1.2 % (0.0-8.0); HEMATOCRIT 27.6 % (36-48); IMMATURE GRANULOCYTE ABSOLUTE 0.14 K/uL (0-1); LYMPHOCYTES # (AUTO) 2.2 K/uL (1.0-4.8); LYMPHOCYTES % (AUTO) 22.9 % (21.0-51.0); MEAN CORPUSCULAR HEMOGLOBIN 30.5 pg (27.0-33.0); MEAN CORPUSCULAR HGB CONC 33.3 g/dL (32.0-36.0); MEAN CORPUSCULAR VOLUME 91.4 fL (79-99); MONOCYTES # (AUTO) 1.2 K/uL (0.1-1.0); NEUTROPHILS # (AUTO) 5.8 K/uL (1.8-7.7); NEUTROPHILS % (AUTO) 61.2 % (40.0-77.0); PLATELET COUNT (AUTO) 335 K/uL (130-400); RED BLOOD CELL COUNT(AUTO) 3.02 MIL/uL (4.00-5.50); RED CELL DISTRIBUTION WIDTH 13.2 % (11.0-15.5); WHITE BLOOD COUNT (AUTO) 9.4 K/uL (4.8-10.8)
[2024-06-01 04:50] LABS: CREATININE 0.6 mg/dL (0.5-1.0); POTASSIUM 3.4 mmol/L (3.5-5.1)
--- NOTE | 2024-06-01 13:41 | DS ---
Discharge Summary Hospital Course Summary: This is a 43-year-old female who presented to the emergency department with abdominal pain CT abdomen and pelvis showed calculous cholecystitis. She is pending HIDA scan today. On evaluation, she complained of abdominal tenderness. We will be following up on HIDA scan results. Continue NPO. Continue with IV fluids. Continue with IV antibiotics. 05/29/2024 Patient evaluated in the room, patient continues with pain. Patient w as noted with fever T-max 101.8 F. Patient's WBCs spiked up yesterday at 35.1, today 24.3. Due to fever and severe leukocytosis, we will be consulting Infectious Disease, for now patient will remain on IV Zosyn. HIDA scan came back positive with acute cholecystitis. Plans for robotic cholecystectomy possible open on 05/30/[address] Galaviz. ] 05/30/24 patient was evaluated in the room, she is status post robotic cholecystectomy secondary to acute gangrenous cholecystitis. Patient is alert and oriented x3, she complains of sore throat possibly due to extubation, we will give her Cepacol lozenges. We will continue to monitor and follow postop recommendations from Dr. Galaviz. 05/31/2024. Patient seen and examined along with RN. Continues to improve she is tolerating clear liquid we will advanced diet to GI soft white count still elevated but coming down afebrile. 06/01/2024. Patient was seen and examined white count is back to normal remains afebrile tolerating diet. We will be discharged home. Pertinent labs and imaging [place] [address] [place] [id number] IMAGING REPORT Signed PATIENT: DANTE TOBIAS MR#: [id number] : 1980 SEX: F AGE: 43 LOCATION: [facility] ORDER 35 STATUS: REG ER REPORT#: [id number] SERVICE 34 REASON: abd pain ORDERING PHYSICIAN: MC HAYES MD PROCEDURE: ABD PEL WO - CT ABDOMEN/PELVIS W/O CONTRAST CT ABDOMEN WITHOUT CONTRAST. CT PELVIS WITHOUT CONTRAST. INDICATION: Abdominal pain; No relevant information related to this study was provided in patient's history by the ordering service. TECHNIQUE: Routine transaxial imaging using 5 mm slice thickness through the abdomen and pelvis without the administration of IV contrast. Thin slice reconstructions are also provided. Coronal and sagittal reformatted images acquired for interpretation. CT was performed with one or more of the following dose reduction techniques: Automated exposure control, adjustment of the mA and/or kV according to patient size, or use of iterative reconstruction technique. COMPARISON: None FINDINGS: ON NONCONTRAST IMAGING: ABDOMEN: Heart size is normal. Visible lung bases are clear. No abnormal renal calcifications, hydronephrosis, perinephric inflammation, or proximal hydroureter detected. The liver is normal in size and smooth in contour without biliary duct dilation. The spleen is normal in size and attenuation. Gallbladder is distended and gallbladder wall edema identified including intraluminal calculi and sludge. Nominal pericholecystic inflammatory fat stranding. The pancreas appears normal without pancreatic duct dilation. The adrenal glands appear normal. No significant abdominal, retrocrural or retroperitoneal adenopathy noted. No evidence for intra-abdominal free air or organized fluid collection. No aortic aneurysmal dilation identified. PELVIS: No abnormal calcifications within the urinary bladder or distal ureters. No evidence for free air or organized pelvic fluid collection. No significant pelvic adenopathy detected. Visualized small and large bowel loops appear unremarkable. Terminal ileum appears unremarkable. The appendix is not well-visualized. 10.6 cm mass containing fat, soft tissue, and calcific components within the right lower abdomen and additional 12.5 cm mass aggregate within the left adnexa with similar components. No surrounding inflammatory changes or free fluid. 5.0 cm subserosal fibroid arising superiorly off the posterior uterine fundus. Visible osseous structures are intact. IMPRESSION: No relevant information related to this study was provided in patient's history by the ordering service. 1. Findings suggesting acute calculus cholecystitis. 2. Bilateral adnexal teratomas without lymphadenopathy at this juncture. CLAIMS SPECIALIST consult is recommended. 3. Fibroid uterus. DICTATED BY: CHAYITO JACKSON MD DATE: 05/26/241925 ELECTRONICALLY SIGNED BY: CHAYITO JACKSON MD DATE: 05/26/241933 [address] [id number] IMAGING REPORT Signed PATIENT: DANTE TOBIAS MR#: [id number] : 1980 SEX: F AGE: 43 LOCATION: 3AH ORDER 1224 STATUS: ADM IN REPORT#: [id number] SERVICE 1522 REASON: r/o acute cholecystitis ORDERING PHYSICIAN: LORRAINE PAYNE PROCEDURE: HIDAWO - NM HIDA WO EF/CCK HEPATOBILIARY SCAN INDICATION: Right upper abdominal pain COMPARISON: None RADIOPHARMACEUTICAL: Tc99m Choletec DOSE: 6.0 mCi given IV. TECHNIQUE: Abdominal functional images were obtained and submitted for interpretation. FINDINGS: Functional images obtained up to 120 minutes showed normal hepato-intestinal transit time, but no accumulation of activity within the gallbladder. IMPRESSION: Findings suggesting acute cholecystitis. DICTATED BY: CHAYITO JACKSON MD DATE: 05/28/242008 ELECTRONICALLY SIGNED BY: CHAYITO JACKSON MD DATE: 05/28/242012 Laboratory Tests Test 05/31/24 03:35 06/01/24 04:10 White Blood Count 13.2 K/uL (4.8-10.8) H 9.4 K/uL (4.8-10.8) Red Blood Count 3.10 MIL/uL (4.00-5.50) L 3.02 MIL/uL (4.00-5.50) L Hemoglobin 9.5 g/dL (12.0-16.0) L 9.2 g/dL (12.0-16.0) L Hematocrit 28.0 % (36-48) L 27.6 % (36-48) L Mean Corpuscular Volume 90.3 fL (79-99) 91.4 fL (79-99) Mean Corpuscular Hemoglobin 30.6 pg (27.0-33.0) 30.5 pg (27.0-33.0) Mean Corpuscular Hemoglobin Concent 33.9 g/dL (32.0-36.0) 33.3 g/dL (32.0-36.0) Red Cell Distribution Width 13.1 % (11.0-15.5) 13.2 % (11.0-15.5) Platelet Count 336 K/uL (130-400) 335 K/uL (130-400) Mean Platelet Volume 10.0 fL (7.5-10.5) 9.6 fL (7.5-10.5) Immature Granulocyte % (Auto) 0.8 % (0-1) 1.5 % (0-1) H Neutrophils (%) (Auto) 81.8 % (40.0-77.0) H 61.2 % (40.0-77.0) Lymphocytes (%) (Auto) 8.6 % (21.0-51.0) L 22.9 % (21.0-51.0) Monocytes (%) (Auto) 8.6 % (3.0-13.0) 13.0 % (3.0-13.0) Eosinophils (%) (Auto) 0.0 % (0.0-8.0) 1.2 % (0.0-8.0) Basophils (%) (Auto) 0.2 % (0.0-5.0) 0.2 % (0.0-5.0) Neutrophils # (Auto) 10.8 K/uL (1.8-7.7) H 5.8 K/uL (1.8-7.7) Lymphocytes # (Auto) 1.1 K/uL (1.0-4.8) 2.2 K/uL (1.0-4.8) Monocytes # (Auto) 1.1 K/uL (0.1-1.0) H 1.2 K/uL (0.1-1.0) H Eosinophils # (Auto) 0.00 K/uL (0.00-0.70) 0.11 K/uL (0.00-0.70) Basophils # (Auto) 0.02 K/uL (0.00-0.20) 0.02 K/uL (0.00-0.20) Absolute Immature Granulocyte (auto 0.11 K/uL (0-1) 0.14 K/uL (0-1) Nucleated Red Blood Cells 0.0 % (0.0-0.19) 0.0 % (0.0-0.19) Sodium Level 137 mmol/L (136-145) 140 mmol/L (136-145) Potassium Level 4.2 mmol/L (3.5-5.1) 3.4 mmol/L (3.5-5.1) L Chloride Level 104 mmol/L (101-111) 105 mmol/L (101-111) Carbon Dioxide Level 25 mmol/L (21-32) 29 mmol/L (21-32) Blood Urea Nitrogen 7 mg/dL (7-18) 8 mg/dL (7-18) Creatinine 0.6 mg/dL (0.5-1.0) 0.6 mg/dL (0.5-1.0) Glomerular Filtration Rate Calc 115 mL/min (>90) 115 mL/min (>90) Random Glucose 132 mg/dL (70-105) H 95 mg/dL (70-105) Total Calcium 7.5 mg/dL (8.5-10.1) L 7.7 mg/dL (8.5-10.1) L Total Bilirubin 0.2 mg/dL (0.2-1.0) Aspartate Amino Transferase (AST) 79 U/L (10-37) H Alanine Aminotransferase (ALT) 98 U/L (12-78) H Alkaline Phosphatase 121 U/L (50-136) Total Protein 5.8 g/dL (6.0-8.3) L Albumin 1.7 g/dL (3.5-5.0) L Service Correspondent(s): SURGEON: SURINDER GALAVIZ MD Procedure(s): OPERATIVE REPORT Name: DANTE TOBIAS Acct: [id number] MR: [id number] : 1980 Admit Date: 05/26/24 [place] [address] Operative Note: DATE OF PROCEDURE: 05/30/24 SURGEON: SURINDER GALAVIZ MD HEALTH TECHNICIAN HEARING: [] ANESTHESIA: [] General ANESTHESIOLOGIST/ELECTROSTATIC POWDER COATING TECHNICIAN: [] PREOPERATIVE DIAGNOSIS: [] Acute cholecystitis POSTOPERATIVE DIAGNOSIS: [] Acute gangrenous cholecystitis SYNOPSIS: [] PROCEDURE: [] Robotic cholecystectomy ESTIMATED BLOOD LOSS: [] 50 cc INDICATIONS: [] DESCRIPTION OF PROCEDURE: [] With the patient prepped and draped we did a supraumbilical incision. Using direct technique I placed a balloon trocar. Two da Polly trochars were placed in each side of the abdomen under direct vision. A 5 mm trocar was placed in the right lateral side. I then went to the console and the robot was docked. I took all adhesions from the gallbladder and I started dissecting the triangle of Calot. The gallbladder seems to be gangrenous. I need to decompress in order to be able to hold the gallbladder. It was also friable. we used firefly to identify the cystic duct and CBD.The cystic duct and the cystic artery were clearly identified and both were double clipped and divided. I took the gallbladder from below using cautery dissection. After the gallbladder was completely removed and adequate hemostasis was obtained I remove all the instruments from the abdomen. I undocked the robot and I came back to the bedside of the patient. I confirm hemostasis suction and irrigate and I placed the gallbladder in a bag. I injected 40 cc of Marcaine 0.25% as an abdominal tap block under direct vision. I injected 20 cc in each side of the abdomen. I decided to place a ANITA 10. That was left under the liver bed. I also placed hemostatic powder to help hemostasis. I took out all the trochars under direct vision and the gallbladder through the supraumbilical incision. I closed the fascia of the supraumbilical incision with a 0 Vicryl [id number]. All incisions were closed with 4-0 Monocryl and Steri-Strips. The patient was transferred stable to the recovery room. SURINDER GALAVIZ MD May 30, 2024 13:31 Electronically Signed by: SURINDER GALAVIZ MD05/30/24 1331 Electronically Co-Signed by: Assessment/Plan: ASSESSMENT: Sepsis, POA Severe leukocytosis and fever Acute calculous cholecystitis, POA Acute cholecystitis, POA Intractable abdominal pain, POA Hyponatremia, POA Leukocytosis, POA Home Medications: No Active Prescriptions or Reported Meds Time spent arranging discharge: 31-60 minutes STEPHEN PIERCE MD Jun 01, 2024 13:41
--- NOTE | 2024-06-01 17:31 | PN ---
INFECTIOUS DISEASE PROGRESS NOTE Date of Service: Jun 01, 2024 SUBJECTIVE: This is a 43-year-old female patient who was seen and examined at bedside in room 329. Patient is status post robotic cholecystectomy on 05/30/2024. The ANITA drain still putting out 120 mL serosanguineous drainage in 24 hours. No fever, temperature is 97.9 and the WBC is 9.4. We will continue on Zosyn IV. From Infectious Disease standpoint patient can be discharged to home once cleared by General surgery. No antibiotics needed on discharge PHYSICAL EXAM EYES: Anicteric. Pupils equal and reactive. HENT: No oral thrush seen, moist Oral mucosa. NECK: Supple, no JVD or thyromegaly. LUNGS: Good air entry. No rales, no rhonchi. CARDIOVASCULAR: S1, S2 regular. No murmur heard. ABDOMEN: Soft, non tender, bowel sounds present, no organomegaly. Abdominal surgical incisions. ANITA drain. CENTRAL NERVOUS SYSTEM: Awake, alert, oriented x 3. No focal deficits. SKIN: No rashes, no swelling. LYMPHATICS: No peripheral lymphadenopathy. MUSCULOSKELETAL: No joint swelling, erythema or tenderness. EXTREMITIES: No cyanosis or clubbing BACK: No deformity, no pressure ulcer. GENITOURINARY: No dysuria or hematuria. Vital Sign (Last 12 Hours) 06/01/24 06/01/24 06/01/24 06/01/24 05:37 07:50 08:00 11:56 Temp 98.4 97.7 97.9 Pulse 77 77 90 Resp 18 19 19 B/P (MAP) 95/61 110/68 122/75 Pulse Ox 95 97 100 95 O2 Delivery Room Air Room Air Room Air* Room Air Nasal Cannula* O2 Flow Rate 0 FiO2 N/A 06/01/24 16:00 Temp 97.3 Pulse 64 Resp 21 B/P (MAP) 116/65 Pulse Ox 98 O2 Delivery Room Air Intake & Output (last 24hrs) 05/31/24 05/31/24 06/01/24 15:00 23:00 07:00 Intake Total 410.0 ml 50.0 ml Output Total 90 ml 30 ml Balance 320.0 ml 20.0 ml LABS: Laboratory: Test 06/01/24 04:10 05/31/24 03:35 Range/Units White Blood Count 9.4 4.8-10.8 K/uL Red Blood Count 3.02 L 4.00-5.50 MIL/uL Hemoglobin 9.2 L 12.0-16.0 g/dL Hematocrit 27.6 L 36-48 % Mean Corpuscular Volume 91.4 79-99 fL Mean Corpuscular Hemoglobin 30.5 27.0-33.0 pg Mean Corpuscular Hemoglobin Concent 33.3 32.0-36.0 g/dL Red Cell Distribution Width 13.2 11.0-15.5 % Platelet Count 335 130-400 K/uL Mean Platelet Volume 9.6 7.5-10.5 fL Immature Granulocyte % (Auto) 1.5 H 0-1 % Neutrophils (%) (Auto) 61.2 40.0-77.0 % Lymphocytes (%) (Auto) 22.9 21.0-51.0 % Monocytes (%) (Auto) 13.0 3.0-13.0 % Eosinophils (%) (Auto) 1.2 0.0-8.0 % Basophils (%) (Auto) 0.2 0.0-5.0 % Neutrophils # (Auto) 5.8 1.8-7.7 K/uL Lymphocytes # (Auto) 2.2 1.0-4.8 K/uL Monocytes # (Auto) 1.2 H 0.1-1.0 K/uL Eosinophils # (Auto) 0.11 0.00-0.70 K/uL Basophils # (Auto) 0.02 0.00-0.20 K/uL Absolute Immature Granulocyte (auto 0.14 0-1 K/uL Nucleated Red Blood Cells 0.0 0.0-0.19 % Sodium Level 140 136-145 mmol/L Potassium Level 3.4 L 3.5-5.1 mmol/L Chloride Level 105 101-111 mmol/L Carbon Dioxide Level 29 21-32 mmol/L Blood Urea Nitrogen 8 7-18 mg/dL Creatinine 0.6 0.5-1.0 mg/dL Glomerular Filtration Rate Calc 115 >90 mL/min Random Glucose 95 70-105 mg/dL Total Calcium 7.7 L 8.5-10.1 mg/dL Total Bilirubin 0.2 0.2-1.0 mg/dL Aspartate Amino Transf (AST/SGOT) 79 H 10-37 U/L Alanine Aminotransferase (ALT/SGPT) 98 H 12-78 U/L Alkaline Phosphatase 121 50-136 U/L Total Protein 5.8 L 6.0-8.3 g/dL Albumin 1.7 L 3.5-5.0 g/dL ASSESSMENT: Acute cholecystitis, s/p robotic cholecystectomy on 05/30/2024. Leukocytosis, resolving. Obesity. PLAN: Continue Zosyn IV. Continue pain management. From Infectious Disease standpoint patient can be discharged to home once cleared by General surgery. No antibiotics needed on discharge. This case was reviewed and discussed with my supervising physician and the above assessment and plan was formulated and agreed upon. ATTESTATION BY PHYSICIAN I have seen and examined the patient. I reviewed the documentation, medical decision making, and treatment plan as noted by the mid-level provider above. I agree with the findings and plan of care. YULISSA SHERMAN MD, [facility] Jun 01, 2024 17:31
[2024-06-02 03:52] VITALS: BP 115/78; PULSE 74; RESP 16; TEMP 98.2
[2024-06-02 07:39] VITALS: BP 109/63; PULSE 57; RESP 18; TEMP 98
[2024-06-02 08:00] VITALS: O2SAT 98
[2024-06-02 09:00] VITALS: O2SAT 97
[2024-06-02 11:59] VITALS: BP 100/68; PULSE 75; RESP 19; TEMP 98
--- NOTE | 2024-06-02 15:00 | NUR ---
note pt dc at this time, pending pickup
--- NOTE | 2024-06-02 18:03 | PN ---
[facility] PROGRESS NOTE Date of Service: Jun 02, 2024 Time of Service: 18:02 SUBJECTIVE: [This is a 43-year-old female who presented to the emergency department with abdominal pain CT abdomen and pelvis showed calculous cholecystitis. She is pending HIDA scan today. On evaluation, she complained of abdominal tenderness. We will be following up on HIDA scan results. Continue NPO. Continue with IV fluids. Continue with IV antibiotics. 05/29/2024 Patient evaluated in the room, patient continues with pain. Patient was noted with fever T-max 101.8 F. Patient's WBCs spiked up yesterday at 35.1, today 24.3. Due to fever and severe leukocytosis, we will be consulting Infectious Disease, for now patient will remain on IV Zosyn. HIDA scan came back positive with acute cholecystitis. Plans for robotic cholecystectomy possible open on 05/30/[address] Galaviz. ] 05/30/24 patient was evaluated in the room, she is status post robotic cholecystectomy secondary to acute gangrenous cholecystitis. Patient is alert and oriented x3, she complains of sore throat possibly due to extubation, we will give her Cepacol lozenges. We will continue to monitor and follow postop recommendations from Dr. Galaviz. 05/31/2024. Patient seen and examined along with RN. Continues to improve she is tolerating clear liquid we will advanced diet to GI soft white count still elevated but coming down afebrile. 06/02/24: pt awaiting clearance from gen surgery for dc , no complaints, REVIEW OF SYSTEMS CONSTITUTIONAL: Denies fevers, chills, or night sweats. No unintentional weight loss reported. NEUROLOGICAL: Denies headache, amaurosis fugax, motor weakness, sensory deficit, vertigo/spinning sensation, gait abnormalities, or tremors. ENT: No hearing loss, otalgia, otorrhea, rhinitis, rhinorrhea, hoarseness, or sore throat. CARDIOVASCULAR: Denies any exertional angina, dyspnea on exertion, orthopnea, paroxysmal nocturnal dyspnea, palpitations, life-threatening arrhythmias, claudication. PULMONARY: Denies any shortness of breath, cough, phlegm/sputum, hemoptysis, pleuritic chest pain. SLEEP: Denies morning headaches, daytime somnolence or napping. Denies difficulty falling asleep, staying asleep, waking from sleep. Denies knowledge of snoring. GASTROINTESTINAL: Denies any type of dysphagia to either liquids or solids. Denies nausea, vomiting, pyrosis, early satiety, abdominal pain, diarrhea, constipation, or changes in stool consistency or caliber. Denies coffee-ground emesis, hematemesis, hematochezia, or melanotic stools. GENITOURINARY: Denies frequency, urgency, nocturia, hematuria or incontinence (Storage/Irritative symptoms.) Low urinary stream, straining to void, urinary intermittency or hesitancy, splitting of the voiding stream, terminal dribbling. ENDOCRINOLOGIC: Denies polyuria, polydipsia, polyphagia or heat/cold intolerances. HEMATOLOGIC: Denies thrombophilia/previous clots, or coagulopathy/bleeding disorders. ONCOLOGIC: Denies personal history of malignancy. DERMATOLOGIC: Denies rashes or pruritus. PSYCHIATRIC: Denies any suicidal or homicidal ideation. Denies hallucinations. PHYSICAL EXAM GENERAL APPEARANCE: The patient is awake, alert, and oriented, in no acute cardiopulmonary distress. NEUROLOGICAL: Cranial nerves II-XII grossly intact. Motor is 5/5 in bilateral upper and lower extremities proximal to distal. No sensory deficits. HEENT: Face is symmetric. Pupils are equal and reactive. Extraocular movements are intact. NECK: Supple. No JVD. No thyromegaly. No submental, submandibular, pre- /postauricular, occipital or supraclavicular lymphadenopathy. CHEST: Normal chest expansion. No Telemetry. LUNGS: Absence of any rales, rhonchi or any wheezing. CARDIOVASCULAR: Regular. S1 and S2 normal. No appreciable rubs, murmurs or gallops. ABDOMEN: Soft, nontender, and nondistended. : Deferred. No Roach. EXTREMITIES: Non-edematous and not cyanotic. No clubbing. Good capillary refill. SKIN: No skin breakdown. Vital Signs (last 8hr) Date Time Temp Pulse Resp B/P (MAP) Pulse Ox O2 Delivery O2 Flow Rate FiO2 06/02/24 11:59 98.1 75 19 100/68 94 Room Air LABS: Laboratory: Test 06/01/24 04:10 Range/Units White Blood Count 9.4 4.8-10.8 K/uL Red Blood Count 3.02 L 4.00-5.50 MIL/uL Hemoglobin 9.2 L 12.0-16.0 g/dL Hematocrit 27.6 L 36-48 % Mean Corpuscular Volume 91.4 79-99 fL Mean Corpuscular Hemoglobin 30.5 27.0-33.0 pg Mean Corpuscular Hemoglobin Concent 33.3 32.0-36.0 g/dL Red Cell Distribution Width 13.2 11.0-15.5 % Platelet Count 335 130-400 K/uL Mean Platelet Volume 9.6 7.5-10.5 fL Immature Granulocyte % (Auto) 1.5 H 0-1 % Neutrophils (%) (Auto) 61.2 40.0-77.0 % Lymphocytes (%) (Auto) 22.9 21.0-51.0 % Monocytes (%) (Auto) 13.0 3.0-13.0 % Eosinophils (%) (Auto) 1.2 0.0-8.0 % Basophils (%) (Auto) 0.2 0.0-5.0 % Neutrophils # (Auto) 5.8 1.8-7.7 K/uL Lymphocytes # (Auto) 2.2 1.0-4.8 K/uL Monocytes # (Auto) 1.2 H 0.1-1.0 K/uL Eosinophils # (Auto) 0.11 0.00-0.70 K/uL Basophils # (Auto) 0.02 0.00-0.20 K/uL Absolute Immature Granulocyte (auto 0.14 0-1 K/uL Nucleated Red Blood Cells 0.0 0.0-0.19 % Sodium Level 140 136-145 mmol/L Potassium Level 3.4 L 3.5-5.1 mmol/L Chloride Level 105 101-111 mmol/L Carbon Dioxide Level 29 21-32 mmol/L Blood Urea Nitrogen 8 7-18 mg/dL Creatinine 0.6 0.5-1.0 mg/dL Glomerular Filtration Rate Calc 115 >90 mL/min Random Glucose 95 70-105 mg/dL Total Calcium 7.7 L 8.5-10.1 mg/dL Current Medications Medications (Trade) Dose Ordered Sig/Maricarmen Route PRN Reason Start Time Stop Time Status Last Admin Dose Admin Acetaminophen (TYLenol 325MG TAB) 650 mg Q4H PRN PO TEMPERATURE GREATER THAN 101.5 05/26/24 22:30 06/25/24 22:29 05/28/24 21:03 650 MG Benzocaine (Cepacol Sore Throat Lozenge) 1 each Q4H PRN MM SORE THROAT 05/30/24 13:00 06/29/24 12:59 06/01/24 05:02 1 EACH Famotidine (Pepcid 20mg Vial) 20 mg BID IV 05/29/24 15:00 06/28/24 14:59 06/02/24 07:47 20 MG Hydromorphone HCl (DiLAUDid 2MG INJ) 2 mg Q4H PRN IVP SEVERE PAIN (7-10) 05/27/24 12:30 05/27/24 12:19 DC Ketorolac Tromethamine (toRADol) 15 mg Q6H PRN IV MODERATE PAIN (4-6) 05/28/24 22:00 06/02/24 21:59 06/01/24 03:24 15 MG Melatonin (Melatonin) 10 mg HS PO 05/31/24 23:10 06/30/24 23:09 06/01/24 20:18 10 MG Morphine Sulfate (morPHINE 2MG SYG) 2 mg Q4H PRN IVP SEVERE PAIN (7-10) 05/26/24 22:30 05/27/24 12:16 DC 05/27/24 11:10 2 MG Morphine Sulfate (morPHINE 4MG SYG) 4 mg Q2HPRN PRN IVP SEVERE PAIN (7-10) 05/27/24 12:30 06/01/24 15:29 DC 05/30/24 16:52 4 MG Ondansetron HCl (zoFRAN 4MG INJ) 4 mg Q6H PRN IVP NAUSEA/VOMITING 05/26/24 22:30 06/25/24 22:29 05/28/24 15:57 4 MG Piperacillin Sod/ Tazobactam Sod (Zosyn 3.375gm+NS 50ml) 3.375 gm Q8H IV 05/26/24 22:30 06/05/24 22:29 06/02/24 14:42 3.375 GM Potassium Chloride 100 ml @ 100 mls/hr AD PRN IV POTASSIUM PROTOCOL 05/30/24 23:00 06/29/24 22:59 Potassium Chloride (K-Dur/Klor-Con 20meq) 20 meq AD PRN PO POTASSIUM PROTOCOL 05/30/24 23:00 06/29/24 22:59 06/01/24 05:26 20 MEQ Potassium Chloride (KCl 10% Elixir 20meq/15ml) 20 meq AD PRN PO POTASSIUM PROTOCOL 05/30/24 23:00 06/29/24 22:59 Promethazine HCl (Phenergan) 25 mg Q6H PRN IM NAUSEA/VOMITING 05/27/24 20:30 06/26/24 20:29 05/27/24 20:41 25 MG Simethicone (Mylicon) 80 mg PCHS PRN PO GI GAS 05/31/24 00:00 06/30/24 00:00 05/31/24 00:03 80 MG Sodium Chloride 500 ml @ 250 mls/hr Q2H IV 05/28/24 05:00 05/28/24 06:59 DC 05/28/24 05:00 250 MLS/HR Sodium Chloride 1,000 ml @ 0 mls/hr Q0M IV 05/28/24 07:00 05/30/24 07:30 DC Sodium Chloride 1,000 ml @ 100 mls/hr Q10H IV 05/26/24 22:30 05/31/24 17:58 DC 05/31/24 02:37 100 MLS/HR DIAGNOSTICS / RADIOLOGY: [ ] ASSESSMENT: Sepsis, POA Severe leukocytosis and fever Acute calculous cholecystitis, POA Acute cholecystitis, POA Intractable abdominal pain, POA Hyponatremia, POA Leukocytosis, POA plan: dc home , no ab on dc per ID dixon drain removed STEPHEN PIERCE MD Jun 02, 2024 18:03
--- NOTE | 2024-06-02 22:45 | PN ---
INFECTIOUS DISEASE PROGRESS NOTE Date of Service: Jun 02, 2024 SUBJECTIVE: This is a 43-year-old female patient who was seen and examined at bedside in room 329. Patient is status post robotic cholecystectomy on 05/30/2024. The ANITA drain put out 40 mL in 24 hours and will be removed today. No fever, temperature is 98.1. Patient being discharge to home today. No antibiotics needed on discharge. PHYSICAL EXAM EYES: Anicteric. Pupils equal and reactive. HENT: No oral thrush seen, moist Oral mucosa. NECK: Supple, no JVD or thyromegaly. LUNGS: Good air entry. No rales, no rhonchi. CARDIOVASCULAR: S1, S2 regular. No murmur heard. ABDOMEN: Soft, non tender, bowel sounds present, no organomegaly. Abdominal surgical incisions. ANITA drain. CENTRAL NERVOUS SYSTEM: Awake, alert, oriented x 3. No focal deficits. SKIN: No rashes, no swelling. LYMPHATICS: No peripheral lymphadenopathy. MUSCULOSKELETAL: No joint swelling, erythema or tenderness. EXTREMITIES: No cyanosis or clubbing BACK: No deformity, no pressure ulcer. GENITOURINARY: No dysuria or hematuria. Vital Sign (Last 12 Hours) 06/02/24 11:59 Temp 98.1 Pulse 75 Resp 19 B/P (MAP) 100/68 Pulse Ox 94 O2 Delivery Room Air Intake & Output (last 24hrs) 06/01/24 06/01/24 06/02/24 15:00 23:00 07:00 Intake Total 50.0 ml 50.0 ml Output Total 40 ml Balance 50.0 ml 10.0 ml LABS: Laboratory: Test 06/01/24 04:10 Range/Units White Blood Count 9.4 4.8-10.8 K/uL Red Blood Count 3.02 L 4.00-5.50 MIL/uL Hemoglobin 9.2 L 12.0-16.0 g/dL Hematocrit 27.6 L 36-48 % Mean Corpuscular Volume 91.4 79-99 fL Mean Corpuscular Hemoglobin 30.5 27.0-33.0 pg Mean Corpuscular Hemoglobin Concent 33.3 32.0-36.0 g/dL Red Cell Distribution Width 13.2 11.0-15.5 % Platelet Count 335 130-400 K/uL Mean Platelet Volume 9.6 7.5-10.5 fL Immature Granulocyte % (Auto) 1.5 H 0-1 % Neutrophils (%) (Auto) 61.2 40.0-77.0 % Lymphocytes (%) (Auto) 22.9 21.0-51.0 % Monocytes (%) (Auto) 13.0 3.0-13.0 % Eosinophils (%) (Auto) 1.2 0.0-8.0 % Basophils (%) (Auto) 0.2 0.0-5.0 % Neutrophils # (Auto) 5.8 1.8-7.7 K/uL Lymphocytes # (Auto) 2.2 1.0-4.8 K/uL Monocytes # (Auto) 1.2 H 0.1-1.0 K/uL Eosinophils # (Auto) 0.11 0.00-0.70 K/uL Basophils # (Auto) 0.02 0.00-0.20 K/uL Absolute Immature Granulocyte (auto 0.14 0-1 K/uL Nucleated Red Blood Cells 0.0 0.0-0.19 % Sodium Level 140 136-145 mmol/L Potassium Level 3.4 L 3.5-5.1 mmol/L Chloride Level 105 101-111 mmol/L Carbon Dioxide Level 29 21-32 mmol/L Blood Urea Nitrogen 8 7-18 mg/dL Creatinine 0.6 0.5-1.0 mg/dL Glomerular Filtration Rate Calc 115 >90 mL/min Random Glucose 95 70-105 mg/dL Total Calcium 7.7 L 8.5-10.1 mg/dL ASSESSMENT: Acute cholecystitis, s/p robotic cholecystectomy on 05/30/2024. Leukocytosis, resolving. Obesity. PLAN: Patient is being discharged to home today. No antibiotics needed on discharge This case was reviewed and discussed with my supervising physician and the above assessment and plan was formulated and agreed upon. ATTESTATION BY PHYSICIAN I have seen and examined the patient. I reviewed the documentation, medical decision making, and treatment plan as noted by the mid-level provider above. I agree with the findings and plan of care. YULISSA SHERMAN MD, [facility] Jun 02, 2024 22:45
== END 2024-06-02 17:10 | disposition home or self-care (01) | DRG 854 ==
LOC: EDH 16:51 → EDHIP 16:52 → 3AH 05-27 00:54
PROVIDERS: ADMIT Internal Medicine; ATTEND Internal Medicine
PROC: 8E0W4CZ Robotic Assisted Procedure of Trunk Region, Percutaneous Endoscopic Approach (ICD-10-PCS; 2024-05-30)
PROC: 0FT44ZZ Resection of Gallbladder, Percutaneous Endoscopic Approach (ICD-10-PCS; principal; 2024-05-30 09:30)
DX: A41.9 Sepsis, unspecified organism (principal); E87.1 Hypo-osmolality and hyponatremia; K80.00 Calculus of gallbladder with acute cholecystitis without obstruction; K82.A1 Gangrene of gallbladder in cholecystitis; E66.9 Obesity, unspecified; F17.290 Nicotine dependence, other tobacco product, uncomplicated; K82.8 Other specified diseases of gallbladder; Z98.51 Tubal ligation status
CPT/HCPCS: 36415; 74176; 76705; 78226; 80048; 80053; 81001; 81025; 82550; 83605; 83690; 83735; 84145; 84484; 85025; 85027; 85610; 85730; 87040; 88304; 93005; A4450; A9537; G0378; J0696; J1100; J1171; J1885; J2250; J2270; J2371; J2405; J2543; J2550; J2704; J2710; J3010; J3490; J7030; A4216; A4222; A4223; A4600; A4649; A4930; C1769; J0665